=== PATIENT | male | born 1955 | race Caucasian/White ===

== ENCOUNTER 2017-11-22 10:36 | Inpatient (IN) | payer OTHER ==
[2017-11-22] VITALS (13 sets, daily range): BP systolic 84–145; BP diastolic 53–83; PULSE 25–77; RESP 14–20; TEMP 97.7–98; O2SAT 93–98
[2017-11-22] MEDS ORDERED: ONDANSETRON HCL 4 MG/2 ML VIAL IVP ONE (11:30)
[2017-11-22] MEDS ORDERED: SODIUM CHLORIDE 0.9% FLUSH 10 ML FLUSH IVF PRN (11:30)
[2017-11-22] MEDS ORDERED: MORPHINE SULFATE 4 MG/ML INJ IV PUSH ONE (11:30)
[2017-11-22] MEDS ORDERED: RESP: ALBUTEROL 2.5 MG/IPRATROPIUM 0.5 MG NEB (SCH) INH ONE (11:30)
--- NOTE | 2017-11-22 11:33 | PD ---
HPI Chief Complaint: Neuro Symptoms/ Deficits Time Seen by Provider: 11:13 Travel History International Travel<30 days: No Contact w/Intl Traveler<30days: No Traveled to known affect area: No History of Present Illness HPI 62-year-old male who reports a history of tobacco use, hypertension, hepatitis C. He presents for evaluation of headache, right eye blurred vision, difficulty sleeping. He reports that for the past month he has had a gradually worsening bitemporal throbbing headache unrelieved with the use of Tylenol. He reports over the past month he has had some blurred vision in the right eye. [facility] and he was told that his speech seems slurred and he was advised to come here for further evaluation. He also reports that a coworker last week told him that his speech was slurred. He reports that he has had very little sleep over the past 3 days because of a headache. He endorses a chronic cough during review of systems. Denies nausea, vomiting, abdominal pain, fevers, chills, facial droop, focal weakness. He is put on levofloxacin yesterday at the [facility]. He has no other complaints at this time. [facility] Past Medical History Cardiovascular Problems: Yes (HTN) Social History Alcohol Use: Yes Tobacco Use: Yes Allergies-Medications (Allergen,Severity, Reaction): Coded Allergies: No Known Allergies (Unverified , 11/22/17) Reported Meds & Prescriptions Reported Meds & Active Scripts Active Reported Atenolol 50 Mg Tab 50 Mg PO DAILY Tylenol Extra Strength (Acetaminophen) 500 Mg Tablet 2 Tab PO Q6HR PRN Levofloxacin 500 Mg Tablet 500 Mg PO DAILY Prednisone 20 Mg Tab 20 Mg PO DAILY Review of Systems Except as stated in HPI: all other systems reviewed are Neg Physical Exam Narrative GENERAL: Well-developed well-nourished male in no acute distress SKIN: Warm and dry. HEAD: Atraumatic. Normocephalic. EYES: Pupils equal and round reactive to light extraocular muscles are intact. No scleral icterus. No injection or drainage. ENT: No nasal bleeding or discharge. Mucous membranes pink and moist. NECK: Trachea midline. No JVD. CARDIOVASCULAR: Regular rate and rhythm. No murmur appreciated. RESPIRATORY: No accessory muscle use. Diffuse wheezing bilaterally. GASTROINTESTINAL: Abdomen soft, non-tender, nondistended. Hepatic and splenic margins not palpable. MUSCULOSKELETAL: No obvious deformities. No clubbing. No cyanosis. No edema. 5 out of 5 muscle strength in the upper and lower extremities. NEUROLOGICAL: Awake and alert. No obvious cranial nerve deficits. Motor grossly within normal limits. Normal speech. PSYCHIATRIC: Appropriate mood and affect; insight and judgment normal. Data Data Last Documented VS Vital Signs Date Time Temp Pulse Resp B/P (MAP) Pulse Ox O2 Delivery O2 Flow Rate FiO2 11/22/17 13:32 25 18 125/72 (89) 98 11/22/17 12:30 Nasal Cannula 2.00 11/22/17 11:05 98.0 Orders Orders Electrocardiogram (11/22/17 11:27) Prothrombin Time / Inr (Pt) (11/22/17 11:27) Act Partial Throm Time (Ptt) (11/22/17 11:27) Complete Blood Count With Diff (11/22/17 11:27) Comprehensive Metabolic Panel (11/22/17 11:27) Creatine Kinase (Cpk) (11/22/17 11:27) Troponin I (11/22/17 11:27) Ct Brain W/O Iv Contrast(Rout) (11/22/17 11:27) Chest, Single Ap (11/22/17 11:27) Ecg Monitoring (11/22/17 11:27) Iv Access Insert/Monitor (11/22/17 11:27) Oximetry (11/22/17 11:27) Sodium Chloride 0.9% Flush (Ns Flush) (11/22/17 11:30) Westergren Sedimentation Rate (11/22/17 11:27) Albuterol-Ipratropium Neb (Duoneb Neb) (11/22/17 11:30) Ondansetron Inj (Zofran Inj) (11/22/17 11:30) Morphine Inj (Morphine Inj) (11/22/17 11:30) CKMB (11/22/17 10:48) CKMB% (11/22/17 10:48) Aspirin Chew (Aspirin Chew) (11/22/17 13:00) Mri Brain W/O Contrast (11/22/17 ) Consult Cardiology (11/22/17 ) (Hub Use Only)Inp Phy Cons/Ref (11/22/17 ) Admit Order (Ed Use Only) (11/22/17 13:40) Labs Laboratory Tests Test 11/22/17 10:48 White Blood Count 15.2 TH/MM3 Red Blood Count 4.86 MIL/MM3 Hemoglobin 14.1 GM/DL Hematocrit 42.1 % Mean Corpuscular Volume 86.6 FL Mean Corpuscular Hemoglobin 28.9 PG Mean Corpuscular Hemoglobin Concent 33.4 % Red Cell Distribution Width 14.1 % Platelet Count 345 TH/MM3 Mean Platelet Volume 7.4 FL Neutrophils (%) (Auto) 84.2 % Lymphocytes (%) (Auto) 12.0 % Monocytes (%) (Auto) 3.4 % Eosinophils (%) (Auto) 0.0 % Basophils (%) (Auto) 0.4 % Neutrophils # (Auto) 12.8 TH/MM3 Lymphocytes # (Auto) 1.8 TH/MM3 Monocytes # (Auto) 0.5 TH/MM3 Eosinophils # (Auto) 0.0 TH/MM3 Basophils # (Auto) 0.1 TH/MM3 CBC Comment DIFF FINAL Differential Comment Erythrocyte Sedimentation Rate 10 mm/hr Prothrombin Time 10.8 SEC Prothromb Time International Ratio 1.1 RATIO Activated Partial Thromboplast Time 24.5 SEC Blood Urea Nitrogen 12 MG/DL Creatinine 0.85 MG/DL Random Glucose 135 MG/DL Total Protein 8.0 GM/DL Albumin 3.9 GM/DL Calcium Level 9.3 MG/DL Alkaline Phosphatase 86 U/L Aspartate Amino Transf (AST/SGOT) 64 U/L Alanine Aminotransferase (ALT/SGPT) 29 U/L Total Bilirubin 0.3 MG/DL Sodium Level 137 MEQ/L Potassium Level 4.2 MEQ/L Chloride Level 103 MEQ/L Carbon Dioxide Level 27.1 MEQ/L Anion Gap 7 MEQ/L Estimat Glomerular Filtration Rate 91 ML/MIN Total Creatine Kinase 444 U/L Creatine Kinase MB 52.2 NG/ML Creatine Kinase MB % 11.8 % Troponin I 8.63 NG/ML [facility] Medical Decision Making Medical Screen Exam Complete: Yes Emergency Medical Condition: Yes Medical Record Reviewed: Yes Differential Diagnosis Tension headache, migraine, subarachnoid hemorrhage, CVA, temporal arteritis Narrative Course The patient was placed on ECG monitor pulse oximetry. 12 lead EKG was obtained. DuoNeb has been ordered for his wheezing. Morphine, Zofran has been ordered for his cephalgia. Lab work, chest x-ray, CT of the brain has been ordered. EKG reveals sinus rhythm with no acute ischemic changes. CBC reveals a WBC count of 15.2. Troponin is elevated at 8.63 and a CK-MB percent is 11.8. Upon further questioning the patient does report that he had about an hour of left-sided squeezing chest pain at 8 AM this morning which resolved. I spoke with sales service professional Dr. Rosario at would like a stat MRI of the brain. With normal CT brain is unlikely that there was an acute hemorrhagic event. He would like the patient to be kept npo and he plans on taking him for cardiac catheterization later today. The patient has been NPO since 8 AM. Diagnosis Primary Impression: NSTEMI (non-ST elevated myocardial infarction) Additional Impressions: Cephalgia Blurred vision, right eye Admitting Information Admitting Physician Requests: Jonatan Hodge Nov 22, 2017 11:33
[2017-11-22] MEDS ORDERED: ACET-822 PO (11:34)
[2017-11-22] MEDS ORDERED: LEVO500T8 PO (11:34)
[2017-11-22] MEDS ORDERED: PRED20 PO (11:34)
[2017-11-22] MEDS ORDERED: ATEN50TA PO (11:34)
--- NOTE | 2017-11-22 11:49 | PD ---
Physical Exam Date Seen by Provider: Nov 22, 2017 Time Seen by Provider: 11:45 Narrative Seeing this patient with Jonatan Crockett PA-C. This is a 62-year-old gentleman with history of COPD, [facility]. Patient reports that he has had bilateral temporal headache for 1 month. He also reports right eye blurry vision 1 month. Patient states the headache is like a vice squeezing on his head. He denies any focal deficits of his extremities. According to him he states the [facility] thought that he has slurred speech. He does not recall or feel as though he has any new slurred speech. Data Data Last Documented VS Vital Signs Date Time Temp Pulse Resp B/P (MAP) Pulse Ox O2 Delivery O2 Flow Rate FiO2 11/22/17 13:32 25 18 125/72 (89) 98 11/22/17 12:30 Nasal Cannula 2.00 11/22/17 11:05 98.0 Orders Orders Electrocardiogram (11/22/17 11:27) Prothrombin Time / Inr (Pt) (11/22/17 11:27) Act Partial Throm Time (Ptt) (11/22/17 11:27) Complete Blood Count With Diff (11/22/17 11:27) Comprehensive Metabolic Panel (11/22/17 11:27) Creatine Kinase (Cpk) (11/22/17 11:27) Troponin I (11/22/17 11:27) Ct Brain W/O Iv Contrast(Rout) (11/22/17 11:27) Chest, Single Ap (11/22/17 11:27) Ecg Monitoring (11/22/17 11:27) Iv Access Insert/Monitor (11/22/17 11:27) Oximetry (11/22/17 11:27) Sodium Chloride 0.9% Flush (Ns Flush) (11/22/17 11:30) Westergren Sedimentation Rate (11/22/17 11:27) Albuterol-Ipratropium Neb (Duoneb Neb) (11/22/17 11:30) Ondansetron Inj (Zofran Inj) (11/22/17 11:30) Morphine Inj (Morphine Inj) (11/22/17 11:30) CKMB (11/22/17 10:48) CKMB% (11/22/17 10:48) Aspirin Chew (Aspirin Chew) (11/22/17 13:00) Consult Cardiology (11/22/17 ) (Hub Use Only)Inp Phy Cons/Ref (11/22/17 ) Admit Order (Ed Use Only) (11/22/17 13:40) Mri Brain W/O Contrast (11/23/17 ) Labs Laboratory Tests Test 11/22/17 10:48 White Blood Count 15.2 TH/MM3 Red Blood Count 4.86 MIL/MM3 Hemoglobin 14.1 GM/DL Hematocrit 42.1 % Mean Corpuscular Volume 86.6 FL Mean Corpuscular Hemoglobin 28.9 PG Mean Corpuscular Hemoglobin Concent 33.4 % Red Cell Distribution Width 14.1 % Platelet Count 345 TH/MM3 Mean Platelet Volume 7.4 FL Neutrophils (%) (Auto) 84.2 % Lymphocytes (%) (Auto) 12.0 % Monocytes (%) (Auto) 3.4 % Eosinophils (%) (Auto) 0.0 % Basophils (%) (Auto) 0.4 % Neutrophils # (Auto) 12.8 TH/MM3 Lymphocytes # (Auto) 1.8 TH/MM3 Monocytes # (Auto) 0.5 TH/MM3 Eosinophils # (Auto) 0.0 TH/MM3 Basophils # (Auto) 0.1 TH/MM3 CBC Comment DIFF FINAL Differential Comment Erythrocyte Sedimentation Rate 10 mm/hr Prothrombin Time 10.8 SEC Prothromb Time International Ratio 1.1 RATIO Activated Partial Thromboplast Time 24.5 SEC Blood Urea Nitrogen 12 MG/DL Creatinine 0.85 MG/DL Random Glucose 135 MG/DL Total Protein 8.0 GM/DL Albumin 3.9 GM/DL Calcium Level 9.3 MG/DL Alkaline Phosphatase 86 U/L Aspartate Amino Transf (AST/SGOT) 64 U/L Alanine Aminotransferase (ALT/SGPT) 29 U/L Total Bilirubin 0.3 MG/DL Sodium Level 137 MEQ/L Potassium Level 4.2 MEQ/L Chloride Level 103 MEQ/L Carbon Dioxide Level 27.1 MEQ/L Anion Gap 7 MEQ/L Estimat Glomerular Filtration Rate 91 ML/MIN Total Creatine Kinase 444 U/L Creatine Kinase MB 52.2 NG/ML Creatine Kinase MB % 11.8 % Troponin I 8.63 NG/ML [facility] Medical Record Reviewed: Yes Supervised Visit with BRITTANY: Yes Differential Diagnosis CVA versus migraine variant versus temporal arteritis versus metabolic derangement versus intracranial tumor Narrative Course 82-year-old [facility]. Patient has history of COPD. The patient has a head CT that shows no evidence of acute abnormalities. The patient had symptoms for a month now. The patient has no focal extremity deficit. He does have blurry vision in the right eye however does have vision. He also has bitemporal headache. EKG showed no evidence of acute ST elevation or depression. The patient's troponin was elevated at 8. The patient did admit that he previously had chest pain prior to arrival. He is pain-free now. The case was discussed her Marlene who will take him emergently to the [facility]. This point I do not feel he has a hemorrhagic stroke and am doubtful that he is even had a stroke. I think the appropriate decision is to take him to the [facility] and grief fully with Dr. cordero's decision. Diagnosis Primary Impression: NSTEMI (non-ST elevated myocardial infarction) Additional Impressions: HTN (hypertension) CAD (coronary artery disease) Cephalgia Blurred vision, right eye Admitting Information Admitting Physician Requests: Admit Scripts Escitalopram (Escitalopram) 10 Mg Tab 10 MG PO DAILY for heart, #30 TAB Prov: David Larson MD 11/24/17 Aspirin (Tgt Aspirin) 81 Mg Chw 81 MG PO DAILY for Blood Clot Prevention for 30 Days, #30 EA Prov: David Larson MD 11/24/17 Atorvastatin (Lipitor) 10 Mg Tab 40 MG PO HS for heart for 30 Days, #30 TAB Prov: David Larson MD 11/24/17 Carvedilol (Coreg) 3.125 Mg Tab 3.125 MG PO BID for heart for 30 Days, #60 TAB Prov: David Larson MD 11/24/17 Ticagrelor (Brilinta) 90 Mg Tab 90 MG PO BID for Blood Clot Prevention for 30 Days, #60 TAB Prov: David Larson MD 11/24/17 Adilson Willis MD Nov 22, 2017 11:49
[2017-11-22 12:11] LABS: AUTOMATED NEUTROPHIL # 12.8 TH/MM3 (1.8-7.7); BASOPHIL # 0.1 TH/MM3 (0-0.2); BASOPHIL % 0.4 % (0.0-2.0); HEMATOCRIT 42.1 % (39.0-51.0); HEMOGLOBIN 14.1 GM/DL (13.0-17.0); LYMPHOCYTE # 1.8 TH/MM3 (1.0-4.8); MEAN CELL VOLUME 86.6 FL (80.0-100.0); MEAN CORPUSCULAR HEMOGLOBIN 28.9 PG (27.0-34.0); MEAN CORPUSCULAR HGB CONC 33.4 % (32.0-36.0); MEAN PLATELET VOLUME 7.4 FL (7.0-11.0); MONO % 3.4 % (0.0-8.0); MONOCYTE # 0.5 TH/MM3 (0-0.9); NEUT % 84.2 % (16.0-70.0); PLATELET COUNT 345 TH/MM3 (150-450); RED BLOOD COUNT 4.86 MIL/MM3 (4.50-5.90); RED CELL DISTRIBUTION WIDTH 14.1 % (11.6-17.2); WHITE BLOOD COUNT 15.2 TH/MM3 (4.0-11.0)
--- NOTE | 2017-11-22 12:13 | RADRPT ---
EXAM DATE/TIME: 11/22/2017 11:46 [facility] COMPARISON: No previous studies available for comparison. INDICATIONS : Cough and shortness of breath. MEDICAL HISTORY : Hypertension. SURGICAL HISTORY : None. ENCOUNTER: Initial ACUITY: 2 weeks PAIN SCORE: 0/10 LOCATION: Bilateral chest FINDINGS: A single view of the chest demonstrates the lungs to be symmetrically aerated without evidence of mas s, infiltrate or effusion. The cardiomediastinal contours are unremarkable. Osseous structures are intact. CONCLUSION: No acute disease. Roman Zimmer MD on November 22, 2017 at 12:11 Board Certified Radiologist. This report was verified electronically.
[2017-11-22 12:19] LABS: INTERNATIONAL NORMALIZED RATIO 1.1 RATIO; PROTHROMBIN TIME - PATIENT 10.8 SEC (9.8-11.6)
[2017-11-22 12:25] LABS: ALBUMIN 3.9 GM/DL (3.4-5.0); ALT (GPT) 29 U/L (12-78); AST (GOT) 64 U/L (15-37); BICARBONATE 27.1 MEQ/L (21.0-32.0); BLOOD UREA NITROGEN 12 MG/DL (7-18); CALCIUM 9.3 MG/DL (8.5-10.1); CHLORIDE 103 MEQ/L (98-107); CREATININE 0.85 MG/DL (0.60-1.30); GLOMERULAR FILTRATION RATE 91 ML/MIN (>89); GLUCOSE,RANDOM 135 MG/DL (74-106); SODIUM (NA) 137 MEQ/L (136-145)
[2017-11-22 12:29] LABS: ALKALINE PHOSPHATASE 86 U/L (45-117); TOTAL BILIRUBIN ADULT 0.3 MG/DL (0.2-1.0)
[2017-11-22 12:37] LABS: TROPONIN I 8.63 NG/ML (0.02-0.05)
--- NOTE | 2017-11-22 12:53 | RADRPT ---
EXAM DATE/TIME: 11/22/2017 12:14 [facility] COMPARISON: No previous studies available for comparison. INDICATIONS : Intermittent headaches x 2 weeks. Right side blurred vision, slurred speech, and generalized weaknes s. RADIATION DOSE: 37.66 CTDIvol (mGy) MEDICAL HISTORY : Hypertension. SURGICAL HISTORY : None. ENCOUNTER: Initial ACUITY: 2 weeks PAIN SCALE: 7/10 LOCATION: cranial TECHNIQUE: Multiple contiguous axial images were obtained of the head. Using automated exposure control and adj ustment of the mA and/or kV according to patient size, radiation dose was kept as low as reasonably a chievable to obtain optimal diagnostic quality images. DICOM format image data is available electro nically for review and comparison. FINDINGS: CEREBRUM: The ventricles are normal for age. No evidence of midline shift, mass lesion, hemorrhage or acute in farction. No extra-axial fluid collections are seen. POSTERIOR FOSSA: The cerebellum and brainstem are intact. The 4th ventricle is midline. The cerebellopontine angle i s unremarkable. EXTRACRANIAL: The visualized portion of the orbits is intact. SKULL: The calvaria is intact. No evidence of skull fracture. CONCLUSION: 1. Unremarkable exam. 2. No evidence of acute infarct, hemorrhage, mass or edema. Roman Zimmer MD on November 22, 2017 at 12:49 Board Certified Radiologist. This report was verified electronically.
[2017-11-22] MEDS ORDERED: ASPIRIN 81 MG CHEW TAB PO ONE (13:00)
[2017-11-22] MEDS ORDERED: NALOXONE HCL 0.4 MG/ML AMP IV PUSH PRN (13:45)
[2017-11-22] MEDS ORDERED: SODIUM CHLORIDE 0.9% FLUSH 10 ML FLUSH IV FLUSH PRN ×2 (13:45)
[2017-11-22] MEDS ORDERED: NITROGLYCERIN 0.4 MG SL 25 TABS/BTL SL PRN (13:45)
[2017-11-22] MEDS ORDERED: MORPHINE SULFATE 2 MG/ML INJ IV PUSH PRN (13:45)
[2017-11-22] MEDS ORDERED: MAGNESIUM HYDROXIDE SUSP 30 ML CUP PO PRN (13:45)
[2017-11-22] MEDS: SODIUM CHLOR 0.9% 1000 ML INJ 1,000 ML IV SCH (14:30)
[2017-11-22] MEDS ORDERED: MIDAZOLAM HCL 5 MG/5 ML VIAL ONE (14:34)
[2017-11-22] MEDS ORDERED: NITROGLYCERIN INJ 5 ML ONE (14:34)
[2017-11-22] MEDS ORDERED: HEPARIN-NS/PF FLUSH BAG 2,000 ML IV FLUSH ONE (14:34)
[2017-11-22] MEDS ORDERED: HEPARIN SODIUM - IV 10,000 UNITS/10 ML VIAL ONE (14:35)
[2017-11-22] MEDS ORDERED: MIDAZOLAM HCL 2 MG/2 ML VIAL ONE (14:50)
--- NOTE | 2017-11-22 15:02 | MB ---
cc: Saritha Rosario MD DATE OF CONSULT: 11/22/2017 HISTORY OF PRESENT ILLNESS: Mr. Jean is a 62-year-old white male with a history of hypertension, hepatitis C and smoking. He has had 1 month history of bitemporal headache and blurred vision in the right eye. He was seen at the [facility] yesterday and was told that he had slurred speech. He developed severe substernal chest discomfort this morning, which lasted for over an hour. Complains of chronic cough, mild shortness of breath. He was started on levofloxacin yesterday at the [facility]. He was found to have significantly elevated troponin consistent with myocardial infarction. PAST MEDICAL HISTORY: Positive for hypertension, hepatitis C. No history of diabetes mellitus, dyslipidemia, coronary artery disease, CVA, history of COPD. MEDICATIONS: Atenolol, Tylenol, levofloxacin, prednisone. ALLERGIES: NONE. SOCIAL HISTORY: The patient is a smoker. He also drinks alcohol. FAMILY HISTORY: Negative for heart disease. REVIEW OF SYSTEMS: Otherwise negative. PHYSICAL EXAMINATION: VITAL SIGNS: Blood pressure 125/72, pulse 62 and regular. HEENT: Negative. NECK: 2+ carotid upstrokes. No bruits. LUNGS: With few wheezes and rhonchi. HEART: Regular with no murmur, gallop or rub. ABDOMEN: Soft, no bruit. EXTREMITIES: Without edema. 1-2+ distal pulses. NEUROLOGIC: Grossly nonfocal. DIAGNOSTIC STUDIES: EKG was reviewed and showed sinus arrhythmia, small inferior T-waves, no acute changes. LABORATORY DATA: Hemoglobin 14.1, potassium 4.2, creatinine 0.85, CK 444, CKMB 11.8, troponin 8.63, AST 64, ALT 29. DIAGNOSES: 1. Recent non-ST elevation myocardial infarction. 2. Hypertension. 3. Smoking. 4. Hepatitis C. 5. Headaches. DISPOSITION: Mr. Jean has ruled in for myocardial infarction. His head CT showed no evidence of acute infarct or hemorrhage. He will undergo cardiac catheterization and coronary intervention if necessary today. He understands the risks and benefits and wished to proceed. Saritha Rosario MD OQ/KD , 02:35 PM , 02:58 PM
[2017-11-22] MEDS ORDERED: TICAGRELOR 90 MG TAB PO ONE (15:54)
--- NOTE | 2017-11-22 16:17 | CATHPROC ---
[employer] HIS Report Study Information Study Number Admission Scheduled Start Study Start [id number] Nov 22 2017 1:42PM 11/22/2017 Nov 22 2017 2:22PM [place] [facility] Cardiac Catheterization Admit Source Facility Department Emergency department [facility] Physician and Clinical Staff Initial Saritha High Breakfast Manager Yomaira Moreno,RN Recorder Radha Hassan ,RT(R) Scrub Marleen Pennington,RT(R) Procedures Performed Procedure Location (Site) Vessel Name Angiogram LV LV Ventricle Coronary Angiograms LCA Left Coronary Coronary Angiograms RCA Right Coronary Drug Eluting Inflatio RCA Mid Right Coronary L Heart Cath PTCA RCA Mid Right Coronary Wire insertion Fem Art (right) Femoral Art Equipment Time Wood Box Maker Description Size Mfg Part Number Used/Scraped WIRE, BALANCE MIDDLEWEIGHT [id number] 15:09 [employer] 190CM Used 190CM *[id number] TRANSDUCER, TRUWAVE [id number] 14:43 MEDRANO ADAME * Used W/STOCKCOCK *[id number] *[id number] [id number] *[id number] [id number] *[id number] 15:50 DAIG/ST. VITA MEDICAL ANGIOSEAL, FR6 VIP FR 6 Used *[id number] 14:43 [employer] IND[employer]RIES PACK, CCL CUSTOM * Used *[id number] 14:43 [employer] PACER PEN, SKIN DUAL W/ RULER * Used *[id number] 14:58 MEDTRONIC AR MOD DXTERITY CATHETER FR 5 [id number] Used [id number] 15:11 [employer] BALLOON, 2.0 X 12MM EUPHORA 12MM Used *[id number] 15:31 MEDTRONIC BALLOON, 2.5 X 15MM EUPHORA 15MM Used *[id number] 15:26 MEDTRONIC STENT, 2.5 26 INTEGRITY 2.5 26 Used *[id number] 15:40 MEDTRONIC STENT, 2.75 26 INTEGRITY 2.75 26 Used *[id number] [id number] 15:14 [employer] MEDICAL 30 JUANCHO INDEFLATOR Used *[id number] 15:07 [employer] MEDICAL SHEATH, FR6.5 PRELUDE 11CM FR 6.5 038ACT Used *[id number] 14:43 [employer]. WIRE, 3MMJ .035 180CM 180CM Used *[id number] PROBE COVER, STERILE [id number] 14:43 [employer] * Used ULTRASOUND W/ GEL *[id number] [id number] 14:43 NAMIC MANIFOLD, 4 PORT * Used *[id number] [id number] 14:43 NAMIC TUBING, HIGH PRESSURE 48" 48" Used *[id number] 14:43 NYCOMED OMNIPAQUE, 350 MG, 150ML 150ML [id number] Used [id number] 14:43 [facility] BLANKET,WARM AIR CCL * Used *[id number] [id number] 14:43 TERUMO MEDICAL SHEATH, FR5 TERUMO (10CM) FR 5 Used *[id number] WIRE, RUNTHROUGH NS FLOPPY [id number] 15:29 TERUMO MEDICAL 180CM Used .014 180CM *[id number] Equipment Model, Serial, Lot Number and Expiration Data Description Model Number Serial Number Lot Number Expiration Date ANGIOSEAL, FR6 VIP [id number] 07-26-2018 AR MOD DXTERITY CATHETER [id number] 01-22-2020 STENT, 2.5 26 INTEGRITY [id number] 04-06-2019 STENT, 2.75 26 INTEGRITY [id number] 05-09-2019 History: Current Medications Medication Dosage/Unit Route Frequency Last Date/Time Taken ASA Beta Kyara History: Allergies Allergy Reaction No Known Allergies History: Risk Factors Family History of Hypertension Dyslipidemia Previous [place] Previous Heart Failure Premature CAD Yes No No No No Prior Valve Prior PCI Prior CABG Surgery No No No Cerebrovascular Peripheral Artery Chronic Lung On Dialysis Diabetes Disease Disease Disease No Yes No Yes No History: Stress Tests Stress or Imaging Studies Performed No History: Other Current Smoker Method Yes Cigarettes Labs Hgb (g/dl) Hct (%) WBC (l/cumm) Platelets (thousands) 11.60-17.00 35.00-51.00 4.00-11.00 150.00-450.00 14.1 42.1 15.2 345 BUN (mg/dl) Creatinine (mg/dl) BUN:Creatinine (1:x) 7.00-18.00 0.50-1.30 10.00-20.00 12 0.9 13.3 Na (meq/l) K (meq/l) 136.00-145.00 3.50-5.10 137 4.2 INR (PTT:PT) 0.90-1.10 1.1 Troponin I (ng/ml) CPK (u/l) CPK-MB (ng/ML) 0.02-0.05 26.00-308.00 0.50-3.60 8.63 444 52.2 Medication Medication Total Dose (Bolus/Oral) Medication Total Dosage/Unit 1% XYLOCAINE 20 mL BRILINTA 180 mg FENTANYL 150 mcg HEPARIN 5500 units NTG (IC) 200 mcg VERSED 6 mg Medications (Bolus/Oral) Medication Time Given Dosage/Unit Administered By Reason VERSED 11/22/2017 2:40:00 PM 2 mg Reddick, Yomaira 2 mg VERSED given in lab by Yomaira Moreno RN in Right Antecubital via Peripheral IV. Ordered by Saritha Norwood. FENTANYL 11/22/2017 2:41:00 PM 50 mcg Reddick, Yomaira 50 mcg FENTANYL given in lab by Yomaira Moreno RN in Right Antecubital via Peripheral IV. Ordered b y Saritha Rosario. VERSED 11/22/2017 2:43:00 PM 1 mg Reddick, Yomaira 1 mg VERSED given in lab by Yomaira Moreno RN via Peripheral IV. Ordered by Saritha Rosario. FENTANYL 11/22/2017 2:44:00 PM 25 mcg Reddick, Yomaira 25 mcg FENTANYL given in lab by Yomaira Moreno RN in Right Antecubital via Peripheral IV. Ordered b y Saritha Rosario. VERSED 11/22/2017 2:48:00 PM 1 mg Reddick, Yomaira 1 mg VERSED given in lab by Yomaira Moreno RN in Right Antecubital via Peripheral IV. Ordered by Saritha Norwood. FENTANYL 11/22/2017 2:49:00 PM 25 mcg Josh, Yomaira 25 mcg FENTANYL given in lab by Yomaira Moreno RN in Right Antecubital via Peripheral IV. Ordered b y Saritha Rosario. 1% XYLOCAINE 11/22/2017 2:49:54 PM 20 mL Saritha Rosario 20 mL 1% XYLOCAINE given in lab by Saritha Rosario in Right Groin via Subcutaneous. Ordered by Saritha Bach. VERSED 11/22/2017 2:51:00 PM 1 mg Reddick, Yomaira 1 mg VERSED given in lab by Yomaira Moreno RN in Right Antecubital via Peripheral IV. Ordered by Saritha Norwood. FENTANYL 11/22/2017 2:52:00 PM 25 mcg Yomaira Moreno 25 mcg FENTANYL given in lab by Yomaira Moreno RN in Right Antecubital via Peripheral IV. Ordered b y Saritha Rosario. HEPARIN 11/22/2017 3:05:36 PM 4500 units Yomaira Moreno 4500 units HEPARIN given in lab by Yomaira Moreno RN in Right Antecubital via Peripheral IV. Ordere d by Saritha Rosario. FENTANYL 11/22/2017 3:12:00 PM 25 mcg Yomaira Moreno 25 mcg FENTANYL given in lab by Yomaira Moreno RN in Right Antecubital via Peripheral IV. Ordered b y Saritha Rosario. VERSED 11/22/2017 3:13:00 PM 1 mg Yomaira Moreno 1 mg VERSED given in lab by Yomaira Moreno RN in Right Antecubital via Peripheral IV. Ordered by Saritha Norwood. NTG (IC) 11/22/2017 3:17:48 PM 100 mcg Yomaira Moreno 100 mcg NTG (IC) given in lab by Yomaira Moreno RN via Intra-coronary. Ordered by Saritha Rosario. HEPARIN 11/22/2017 3:32:49 PM 1000 units Yomaira Moreno 1000 units HEPARIN given in lab by Yomaira Moreno RN via Peripheral IV. Ordered by Saritha Rosario. NTG (IC) 11/22/2017 3:43:40 PM 100 mcg Saritha Rosario 100 mcg NTG (IC) given in lab by Saritha Rosario via Intra-coronary. Ordered by Saritha Rosario. BRILINTA 11/22/2017 3:54:00 PM 180 mg Yomaira Moreno 180 mg BRILINTA given in lab by Yomaira Moreno RN via Oral. Ordered by Saritha Rosario. Medication (Drip) Medication Time Given Dosage/Unit Concentration/Unit Diluent (ml) Solution IV Bolus 11/22/2017 2:53:00 PM 0 mL (Bolus) 1000 NaCl .9 0 mL (Bolus) IV Bolus given in lab by Yomaira Moreno RN in Right Antecubital via Peripheral IV. Usi ng NaCl .9. Ordered by Saritha Rosario. IV Solutions 11/22/2017 2:22:39 PM 50 mL (IV) NaCl .9 Patient arrived on IV Solutions given by Yomaira Moreno RN in Right Antecubital via Peripheral IV. Pump/Drip Flow using NaCl .9. Ordered by Saritha Rosario. Initial Case Assessment Cardiovascular HR Rhythm NIBP Chest Pain 75 sr 110/65 0 Edema Present Skin color Skin None Normal Warm Dry Circulatory - Right Pulses Dorsalis Pedis Femoral 1 2 Scale (0,1,2,3,4,d) Circulatory - Left Pulses Dorsalis Pedis Femoral 1 2 Scale (0,1,2,3,4,d) Circulatory - Lower Extremities Color Lower Right Color Lower Left Normal Normal Neurological State Oriented to time-place- Alert Moves all extremities person Respiration - General Respiration Rate SpO2 (%) (B/min) 15 97 Final Case Assessment Cardiovascular HR Rhythm NIBP Chest Pain 62 sr 120/69 0 Edema Present Skin color Skin None Normal Warm Dry Circulatory - Right Pulses Dorsalis Pedis Femoral 1 2 Scale (0,1,2,3,4,d) Circulatory - Left Pulses Dorsalis Pedis Femoral 1 2 Scale (0,1,2,3,4,d) Circulatory - Lower Extremities Color Lower Right Color Lower Left Normal Normal Neurological State Oriented to time-place- Alert Moves all extremities person Respiration - General Respiration Rate SpO2 (%) (B/min) 30 100 Chronological Log Time Study Chronological Log 14:22:22 Patient arrived via Bed. 14:22:23 Patient Name, D.O.B, / Armband Verified By R.N. 14:22:24 Consent signed by the physician and the patient and verified by the [facility] staff. 14:22:25 Verbal Stimulation=2 Physical Stimulation=2 Airway=2 Respiration=2 TOTAL=8. (0=absent, 1=li mited, 2=present) 14:22:27 Patient has been NPO for Less than 6Hrs. 14:22:28 Skin Breakdown- none per patient 14:22:29 Patient Warmer Placed on the Table. 14:22:30 Magaly Prominences Protected 14:22:38 A # 20 IV was noted in the Antecubital (right). Grade = 0 Patient arrived on IV Solutions given by Yomaira Moreno RN in Right Antecubital via Periphera l IV. Pump/Drip Flow 14::39 using NaCl .9. Ordered by Saritha Rosario. 14:22:39 History and physical on the chart or being dictated. Assessment: Initial Case, HR=75 BPM, Rhythm=sr, AGJV=737/65 mmhg, Chest Pain=0, Edema=None, Col or=Normal, Skin = Warm, Dry Right Pulses: Chase Ped=1, Femoral=2 Left Pulses: Chase Ped=1, Femoral=2 14:22:40 Lower Right Extremities: Color=Normal Lower Left Extremities: Color=Normal Neurological: State=Alert, Ox3, [place] Respiration: Resp=15 B/min, SpO2=97 % 14:36:14 MD arrived. Vitals capture started with the following parameters, Patient=Adult, Interval=5 min, Initial Pr nfyzjy=232 mmHg, 14:37:15 Deflation Rate=5 mmHg, Cuff placed on Left Arm 14:37:47 HR=60 bpm, BUVT=041/65 mmhg, SpO2=98.0 %, Resp=20 B/min, Pain=0, Jonathan=10, Galeas=2 14:40:00 2 mg VERSED given in lab by Yomaira Moreno RN in Right Antecubital via Peripheral IV. Ord ered by Saritha Rosario. 50 mcg FENTANYL given in lab by Yomaira Moreno, VANDANA in Right Antecubital via Peripheral IV. Ord ered by Marlene, 14:41:00 Saritha. 14:41:00 Pressure channel 1 zeroed. 14:42:39 Bilateral groins prepped with 2% chlorhexidine, and draped after a 3 minute waiting time. 14:42:44 HR=71 bpm, NIBP=97/70 mmhg, SpO2=96.0 %, Resp=12 B/min, Pain=0, Jonathan=10, Galeas=2 14:43:00 1 mg VERSED given in lab by Yomaira Moreno RN via Peripheral IV. Ordered by Norris Rosario. 25 mcg FENTANYL given in lab by Yomaira Moreno, VANDANA in Right Antecubital via Peripheral IV. Ord ered by Marlene, 14:44:00 Saritha. 14:47:45 HR=71 bpm, NIBP=96/61 mmhg, SpO2=81.0 %, Resp=7 B/min, Pain=0, Jonathan=10, Galeas=2 14:48:00 1 mg VERSED given in lab by Yomaira Moreno RN in Right Antecubital via Peripheral IV. Ord ered by Saritha Rosario. 25 mcg FENTANYL given in lab by Yomaira Moreno RN in Right Antecubital via Peripheral IV. Ord ered by Marlene, 14:49:00 Saritha. Time Out. Correct patient, correct procedure, correct physician, power injector loaded with con trast with surgical team 14:49:36 present. Time Out Concurred by MD and individual staff in procedure. 14:49:53 Case Start 14:49:54 20 mL 1% XYLOCAINE given in lab by Saritha Rosario in Right Groin via Subcutaneous. Ordered by Saritha Rosario. 14:50:26 Reference ECG taken 14:51:00 1 mg VERSED given in lab by Yomaira Moreno RN in Right Antecubital via Peripheral IV. Ord ered by Saritha Rosario. 25 mcg FENTANYL given in lab by Yomaira Moreno RN in Right Antecubital via Peripheral IV. Ord ered by Marlene, 14:52:00 Saritha. 14:52:44 HR=58 bpm, NIBP=95/57 mmhg, SpO2=99.0 %, Resp=25 B/min, Pain=0, Jonathan=10, Galeas=2 0 mL (Bolus) IV Bolus given in lab by Yomaira Moreno RN in Right Antecubital via Peripheral I V. Using NaCl .9. Ordered 14:53:00 by Saritha Rosario. 14:53:14 Access site was Right Femoral Artery. 14:53:22 A SHEATH, FR5 TERUMO (10CM) FR 5 was advanced into the Fem Art (right) using the Percutaneo us technique. A PIGTAIL ANG. INFINITI CATHETER FR 5 was advanced over a wire. OMNIPAQUE, 350 MG, 150ML 150ML was used 14:53:30 for injections. Recorded Pressure: LV, HR=57, Condition=Condition 1 14:54:46 (Left Ventricle) LV 76/5/9 14:55:22 The LV was injected at 10 cc/sec for a total of 30. OMNIPAQUE, 350 MG, 150ML 150ML used. Recorded Pressure: LV, Ao, HR=67, Condition=Condition 1 14:56:34 (Left Ventricle) LV 77/6/10, (Aorta) Ao 77/43/57 After removing the current catheter a JL 4.0 INFINITI CATHETER FR 5 was advanced over a WIRE, 3 MMJ .035 180CM 14:56:46 180CM. 14:57:45 HR=66 bpm, NIBP=89/49 mmhg, KsE3=549.0 %, Resp=40 B/min, Pain=0, Jonathan=10, Galeas=2 14:58:30 The LCA was injected and visualized at various angles. OMNIPAQUE, 350 MG, 150ML 150ML used . 15:01:21 Catheter was removed A AR MOD DXTERITY CATHETER FR 5 was advanced over a wire. OMNIPAQUE, 350 MG, 150ML 150ML was us ed for 15:01:25 injections. 15:02:31 The RCA was injected and visualized at various angles. OMNIPAQUE, 350 MG, 150ML 150ML used . 15:02:44 HR=67 bpm, NIBP=90/53 mmhg, SpO2=99.0 %, Resp=53 B/min, Pain=0, Jonathan=10, Galeas=2 15:02:56 Catheter was removed 4500 units HEPARIN given in lab by Yomaira Moreno, VANDANA in Right Antecubital via Peripheral IV. Ordered by Marlene, 15:05:36 Saritha. A SHEATH, FR6.5 PRELUDE 11CM FR 6.5 was exchanged in the Fem Art (right). This was necessary in order to 15:06:27 accomodate a larger catheter. 15:07:42 A AR 1 GUIDE CATHETER FR 6 was advanced over a wire. OMNIPAQUE, 350 MG, 150ML 150ML was use d for injections. 15:07:45 HR=70 bpm, NIBP=90/54 mmhg, FbJ3=691.0 %, Resp=31 B/min, Pain=0, Jonathan=10, Galeas=2 15:08:42 A WIRE, BALANCE MIDDLEWEIGHT 190CM 190CM was inserted via Fem Art (right). 15:10:16 Interventional wire has crossed the lesion 15:10:24 Activated Clotting Time Drawn A BALLOON, 2.0 X 12MM EUPHORA 12MM was inserted over WIRE, BALANCE MIDDLEWEIGHT 190CM 190CM via the 15:11:50 Fem Art (right). 25 mcg FENTANYL given in lab by Yomaira Moreno RN in Right Antecubital via Peripheral IV. Ord ered by Marlene, 15:12:00 Saritha. 15:12:44 HR=68 bpm, NIBP=97/59 mmhg, PzP8=795.0 %, Resp=25 B/min, Pain=0, Jonathan=10, Galeas=2 15:13:00 1 mg VERSED given in lab by Yomaira Moreno RN in Right Antecubital via Peripheral IV. Ord ered by Saritha Rosario. A BALLOON, 2.0 X 12MM EUPHORA 12MM over a WIRE, BALANCE MIDDLEWEIGHT 190CM 190CM in the RCA Mid was 15:13:39 inflated using a 30 JUANCHO INDEFLATOR at 2 juancho for 15 sec. 15:14:59 ACT (Normal Range 90-180) = 241 A BALLOON, 2.0 X 12MM EUPHORA 12MM over a WIRE, BALANCE MIDDLEWEIGHT 190CM 190CM in the RCA Mid was 15:15:48 inflated using a 30 JUANCHO INDEFLATOR at 2 juancho for 9 sec. A BALLOON, 2.0 X 12MM EUPHORA 12MM over a WIRE, BALANCE MIDDLEWEIGHT 190CM 190CM in the RCA Mid was 15:16:00 inflated using a 30 JUANCHO INDEFLATOR at 2 juancho for 5 sec. A BALLOON, 2.0 X 12MM EUPHORA 12MM over a WIRE, BALANCE MIDDLEWEIGHT 190CM 190CM in the RCA Mid was 15:16:58 inflated using a 30 JUANCHO INDEFLATOR at 8 juancho for 7 sec. A BALLOON, 2.0 X 12MM EUPHORA 12MM over a WIRE, BALANCE MIDDLEWEIGHT 190CM 190CM in the RCA Mid was 15:17:10 inflated using a 30 JUANCHO INDEFLATOR at 8 juancho for 6 sec. A BALLOON, 2.0 X 12MM EUPHORA 12MM over a WIRE, BALANCE MIDDLEWEIGHT 190CM 190CM in the RCA Mid was 15:17:23 inflated using a 30 JUANCHO INDEFLATOR at 16 juancho for 12 sec. 15:17:45 HR=71 bpm, ZAST=362/66 mmhg, SpO2=98.0 %, Resp=15 B/min, Pain=0, Jonathan=10, Galeas=2 15:17:48 100 mcg NTG (IC) given in lab by Yomaira Moreno, VANDANA via Intra-coronary. Ordered by Saritha Rosario. A BALLOON, 2.0 X 12MM EUPHORA 12MM over a WIRE, BALANCE MIDDLEWEIGHT 190CM 190CM in the RCA Mid was 15:18:45 inflated using a 30 JUANCHO INDEFLATOR at 16 juancho for 15 sec. A BALLOON, 2.0 X 12MM EUPHORA 12MM over a WIRE, BALANCE MIDDLEWEIGHT 190CM 190CM in the RCA Mid was 15:19:06 inflated using a 30 JUANCHO INDEFLATOR at 16 juancho for 10 sec. A BALLOON, 2.0 X 12MM EUPHORA 12MM over a WIRE, BALANCE MIDDLEWEIGHT 190CM 190CM in the RCA Mid was 15:19:22 inflated using a 30 JUANCHO INDEFLATOR at 16 juancho for 11 sec. A BALLOON, 2.0 X 12MM EUPHORA 12MM over a WIRE, BALANCE MIDDLEWEIGHT 190CM 190CM in the RCA Mid was 15:19:44 inflated using a 30 JUANCHO INDEFLATOR at 16 juancho for 10 sec. A BALLOON, 2.0 X 12MM EUPHORA 12MM over a WIRE, BALANCE MIDDLEWEIGHT 190CM 190CM in the RCA Mid was 15:20:02 inflated using a 30 JUANCHO INDEFLATOR at 16 juancho for 10 sec. A BALLOON, 2.0 X 12MM EUPHORA 12MM over a WIRE, BALANCE MIDDLEWEIGHT 190CM 190CM in the RCA Mid was 15:21:33 inflated using a 30 JUANCHO INDEFLATOR at 16 juancho for 20 sec. 15:22:48 HR=69 bpm, NIBP=97/57 mmhg, FkB3=077.0 %, Resp=18 B/min, Pain=0, Jonathan=10, Galeas=2 15:26:00 Balloon Removed. 15:27:47 HR=62 bpm, NIBP=92/54 mmhg, UoV6=313.0 %, Resp=13 B/min, Pain=0, Jonathan=10, Galeas=2 15:29:18 The previous wire was exchanged for a WIRE, RUNTHROUGH NS FLOPPY .014 180CM 180CM. A BALLOON, 2.5 X 15MM EUPHORA 15MM was inserted over WIRE, RUNTHROUGH NS FLOPPY .014 180CM 180C M via 15:31:40 the RCA. A BALLOON, 2.5 X 15MM EUPHORA 15MM over a WIRE, RUNTHROUGH NS FLOPPY .014 180CM 180CM in the RC A Mid 15:32:43 was inflated using a 30 JUANCHO INDEFLATOR at 8 juancho for 20 sec. 15:32:48 HR=64 bpm, WTRY=930/60 mmhg, TdM3=130.0 %, Resp=19 B/min, Pain=0, Jonathan=10, Galeas=2 15:32:49 1000 units HEPARIN given in lab by Yomaira Moreno, VANDANA via Peripheral IV. Ordered by Saritha Bach. A BALLOON, 2.5 X 15MM EUPHORA 15MM over a WIRE, RUNTHROUGH NS FLOPPY .014 180CM 180CM in the RC A Mid 15:33:00 was inflated using a 30 JUANCHO INDEFLATOR at 8 juancho for 14 sec. A BALLOON, 2.5 X 15MM EUPHORA 15MM over a WIRE, RUNTHROUGH NS FLOPPY .014 180CM 180CM in the RC A Mid 15:33:21 was inflated using a 30 JUANCHO INDEFLATOR at 8 juancho for 8 sec. 15:33:33 Balloon Removed. A STENT, 2.5 26 INTEGRITY 2.5 26 was advanced through a AR 1 GUIDE CATHETER FR 6 over a WIRE, R UNTHROUGH 15:35:15 NS FLOPPY .014 180CM 180CM. A STENT, 2.5 26 INTEGRITY 2.5 26 was deployed using a 30 JUANCHO INDEFLATOR at 9 atmospheres for 18 seconds in 15:36:04 the RCA Mid. 15:36:39 Re-inflated the stent balloon in the RCA Mid to 16 JUANCHO for 14 seconds. 15:37:48 HR=68 bpm, HNNK=374/70 mmhg, HvK7=836.0 %, Resp=32 B/min, Pain=0, Jonathan=10, Galeas=2 15:39:06 Re-inflated the stent balloon in the RCA Mid to 20 JUANCHO for 30 seconds. 15:40:06 Delivery device removed A STENT, 2.75 26 INTEGRITY 2.75 26 was advanced through a AR 1 GUIDE CATHETER FR 6 over a WIRE, 15:41:01 RUNTHROUGH NS FLOPPY .014 180CM 180CM. A STENT, 2.75 26 INTEGRITY 2.75 26 was deployed using a 30 JUANCHO INDEFLATOR at 12 atmospheres for 28 seconds 15:41:56 in the RCA Mid. 15:42:50 Re-inflated the stent balloon in the RCA Mid to 12 JUANCHO for 12 seconds. 15:42:51 HR=69 bpm, JBJW=482/77 mmhg, ZxZ2=188.0 %, Resp=64 B/min, Pain=0, Jonathan=10, Galeas=2 15:43:16 Delivery device removed 15:43:40 100 mcg NTG (IC) given in lab by Saritha Rosario via Intra-coronary. Ordered by Joaquin Rosario. 15:47:40 Wire removed 15:47:44 Catheter was removed 15:47:54 HR=65 bpm, MKIW=678/71 mmhg, SpO2=99.0 %, Resp=17 B/min, Pain=0, Jonathan=10, Galeas=2 15:51:24 ANGIOSEAL, FR6 VIP FR 6 placement in the Fem Art (right) 15:52:47 Case End 15:52:57 HR=65 bpm, LYVO=406/69 mmhg, SpO2=92.0 %, Resp=22 B/min, Pain=0, Jonathan=10, Galeas=2 Assessment: Final Case, HR=62 BPM, Rhythm=sr, JBLM=473/69 mmhg, Chest Pain=0, Edema=None, Color =Normal, Skin = Warm, Dry Right Pulses: Chase Ped=1, Femoral=2 Left Pulses: Chase Ped=1, Femoral=2 15:53:05 Lower Right Extremities: Color=Normal Lower Left Extremities: Color=Normal Neurological: State=Alert, Ox3, [place] Respiration: Resp=30 B/min, ObX9=880 % 15:53:07 Catheter(s) removed without difficulty 15:54:00 180 mg BRILINTA given in lab by Yomaira Moreno RN via Oral. Ordered by Saritha Rosario. 15:54:29 Cine recording checked. 15:54:30 Bedside Report will be given. 15:54:38 Implantable Device card placed in patient's chart. 15:54:43 A Left Heart Cath was performed. 15:57:56 HR=71 bpm, HISG=390/70 mmhg, PbA1=785.0 %, Resp=26 B/min, Pain=0, Jonathan=10, Galeas=2 16:01:47 Vitals capture stopped. 16:06:23 Patient moved to stretcher End Study - Contrast Media Used In Study Contrast Total Opened (mL) Total Used (mL) Total Wasted (mL) Omnipaque 190 190 0 End Study - Maximum Contrast Load Max Contrast Load (mL) 353.3 End Study - Radiation Exposure Fluoro Time (minutes) 15.1 End Study - Sheaths Sheaths Pulled By Sheath Hold Time (min) Saritha Rosario End Study - Patient Disposition Complications Transferred To Interventional Outcome No Telemetry Bed successful
[2017-11-22] MEDS ORDERED: IOHEXOL 350 MG/ML 100 ML BTL (for Cath Lab) OTHER ONE (16:25)
[2017-11-22] MEDS ORDERED: SODIUM CHLOR 0.9% 1000 ML INJ 1,000 ML IV SCH (16:27)
[2017-11-22] MEDS ORDERED: MISC INFORMATION XX ONE (16:30)
--- NOTE | 2017-11-22 16:32 | MA ---
cc: Saritha Rosario MD INDICATION: Non-ST elevation myocardial infarction, class 4 angina. PROCEDURE PERFORMED: 1. Right and left heart catheterization with left ventriculography and selective coronary angiography. 2. Angioplasty and stenting of the right coronary artery. 3. Moderate sedation. EXIT SITE: Right femoral artery. EQUIPMENT USED: A 5 Afghan pigtail catheter, 5 Afghan JL4 and AR1 coronary artery catheters. AR1 guide, BMW and Runthrough wires, 2.0 and 2.5 balloon for predilatation, 2.5 x 26 mm Integrity bare-metal stent at 28 atmospheres to the mid-RCA and 2.75 x 26 mm Integrity bare-metal stent at 12 atmospheres to the proximal-mid RCA. VESSEL: RCA 100% lesion length 42 mm, pre-EDILBERTO flow 0, post-EDILBERTO flow 3, post-stenosis 0. POST-INTERVENTIONAL ANGIOGRAPHY: Revealed excellent patency of the stented segment and no evidence of dissection, thrombosis or distal embolization. MEDICATIONS: Versed IV, fentanyl IV, heparin IV, nitroglycerin IC, Brilinta 180 mg p.o. CONTRAST: Omnipaque 190 mL. DIAGNOSES: 1. Non-ST elevation myocardial infarction. 2. Coronary artery disease with total occlusion of the mid-right coronary artery. 3. Mild left ventricular dysfunction, consistent with ischemic cardiomyopathy. 4. Successful angioplasty and stenting of the right coronary artery distal position. Mr. Jean will be monitored on telemetry after the procedure. We will continue aggressive modification of his cardiac risk factors. Will continue therapy with Brilinta for at least 1 month and as per . He was strongly encouraged to quit smoking. Saritha Rosario MD OYael/BERKLEY , 04:09 PM , 04:31 PM
--- NOTE | 2017-11-22 17:35 | HHI.HP ---
[facility] Admission Diagnosis NSTEMI, cephalgia, right eye blurred vision Diagnoses: Travel History International Travel<30 Days: No Contact w/Intl Traveler <30 Da: No Traveled to Known Affected Are: No History of Present Illness Mr. Nina is a 62-year-old male. He has a history of nicotine use, hypertension, and hepatitis C. She reports that he's been having blurred vision in his right eye and bilateral temporal headaches for 2 weeks. He's been told by some of his friends that he is having some slurred speech. Tenderness is present at his bilateral temporal areas. He came in today specifically for chest pain. Chest pain is central in his chest and has a tight feeling. Preliminary workup in the ER shows positive troponins. Cardiology has been quickly consulted and patient will go down for cardiac catheter. No nausea or vomiting. Patient's presently smoking about one half pack per day. Review of Systems Constitutional: DENIES: Fever, Chills, Night Sweats Eyes: COMPLAINS OF: Blurred vision, DENIES: Diplopia, Eye inflammation, Eye pain Ears, nose, mouth, throat: DENIES: Tinnitus, Hearing loss, Vertigo, Nasal discharge Respiratory: DENIES: Cough, Wheezing, Shortness of breath Cardiovascular: COMPLAINS OF: Chest pain, DENIES: Palpitations, Syncope Gastrointestinal: DENIES: Abdominal pain, Black stools, Bloody stools Musculoskeletal: DENIES: Joint pain, Muscle aches, Stiffness Integumentary: DENIES: Abnormal pigmentation, Nail changes, Pruritus, Rash Hematologic/lymphatic: DENIES: Bruising, Lymphadenopathy Immunologic/allergic: DENIES: Eczema, Urticaria Neurologic: COMPLAINS OF: Headache, DENIES: Abnormal gait, Paresthesias Psychiatric: DENIES: Anxiety, Confusion, Hallucinations Past Family Social History Past Medical History Hypertension Hepatitis C Past Surgical History None reported by patient Reported Medications Reported Meds & Active Scripts Active Reported Atenolol 50 Mg Tab 50 Mg PO DAILY Tylenol Extra Strength (Acetaminophen) 500 Mg Tablet 2 Tab PO Q6HR PRN Levofloxacin 500 Mg Tablet 500 Mg PO DAILY Prednisone 20 Mg Tab 20 Mg PO DAILY Allergies: Coded Allergies: No Known Allergies (Unverified , 11/22/17) Active Ordered Medications Administered Medications Medications (Trade) Dose Ordered Sig/Bianca Route PRN Reason Start Time Stop Time Status Last Admin Dose Admin Sodium Chloride 1,000 ml @ 100 mls/hr Q10H IV 11/22/17 13:40 11/22/17 14:30 Family History Cancer in mother (not specified) COPD in father Social History Patient is a smoker, smokes one half pack per day No alcohol abuse No illicit drug abuse Physical Exam Vital Signs Vital Signs Date Time Temp Pulse Resp B/P (MAP) Pulse Ox O2 Delivery O2 Flow Rate FiO2 11/22/17 14:18 98 Nasal Cannula 2.00 11/22/17 13:32 25 18 125/72 (89) 98 11/22/17 12:30 62 18 125/73 (90) 98 Nasal Cannula 2.00 11/22/17 12:00 16 11/22/17 11:58 77 18 124/72 (89) 98 Room Air 11/22/17 11:15 Room Air 11/22/17 11:05 98.0 66 14 145/83 (103) 96 Physical Exam GENERAL: NAD, A&Ox3 HEAD: Normocephalic. NECK: Supple, trachea midline. No lymphadenopathy. EYES: No scleral icterus. No injection or drainage. CARDIOVASCULAR: Regular rate and rhythm without murmurs, gallops, or rubs. RESPIRATORY: Breath sounds equal bilaterally. No accessory muscle use. GASTROINTESTINAL: Abdomen soft, non-tender, nondistended. MUSCULOSKELETAL: No cyanosis, or edema. SKIN: Warm and dry. NEURO: No focal neurological deficitis. Laboratory Laboratory Tests Test 11/22/17 10:48 White Blood Count 15.2 Red Blood Count 4.86 Hemoglobin 14.1 Hematocrit 42.1 Mean Corpuscular Volume 86.6 Mean Corpuscular Hemoglobin 28.9 Mean Corpuscular Hemoglobin Concent 33.4 Red Cell Distribution Width 14.1 Platelet Count 345 Mean Platelet Volume 7.4 Neutrophils (%) (Auto) 84.2 Lymphocytes (%) (Auto) 12.0 Monocytes (%) (Auto) 3.4 Eosinophils (%) (Auto) 0.0 Basophils (%) (Auto) 0.4 Neutrophils # (Auto) 12.8 Lymphocytes # (Auto) 1.8 Monocytes # (Auto) 0.5 Eosinophils # (Auto) 0.0 Basophils # (Auto) 0.1 CBC Comment DIFF FINAL Differential Comment Erythrocyte Sedimentation Rate 10 Prothrombin Time 10.8 Prothromb Time International Ratio 1.1 Activated Partial Thromboplast Time 24.5 Blood Urea Nitrogen 12 Creatinine 0.85 Random Glucose 135 Total Protein 8.0 Albumin 3.9 Calcium Level 9.3 Alkaline Phosphatase 86 Aspartate Amino Transf (AST/SGOT) 64 Alanine Aminotransferase (ALT/SGPT) 29 Total Bilirubin 0.3 Sodium Level 137 Potassium Level 4.2 Chloride Level 103 Carbon Dioxide Level 27.1 Anion Gap 7 Estimat Glomerular Filtration Rate 91 Total Creatine Kinase 444 Creatine Kinase MB 52.2 Creatine Kinase MB % 11.8 Troponin I 8.63 Result Diagram: 11/22/17 1048 11/22/17 1048 Pura VTE Risk Assessment Pura VTE Risk Assessment: No/Low Risk (score <= 1) Caprini Risk Assessment Model Point Value = 1 Point Value = 2 Point Value = 3 Point Value = 5 Age 41-60 Minor surgery BMI > 25 kg/m2 Swollen legs Varicose veins or History of unexplained or recurrent spontaneous Oral contraceptives or hormone replacement Sepsis (< 1 month) Serious lung disease, including pneumonia (< 1 month) Abnormal pulmonary function Acute myocardial infarction Congestive heart failure (< 1 month) History of inflammatory bowel disease Medical patient at bed rest Age 61-74 Arthroscopic surgery Major open surgery (> 45 min) Laparoscopic surgery (> 45 min) Malignancy Confined to bed (> 72 hours) Immobilizing plaster cast Central venous access Age >= 75 History of VTE Family history of VTE Factor V Leiden Prothrombin [id number] Lupus anticoagulant Anticardiolipin antibodies Elevated serum homocysteine Heparin-induced thrombocytopenia Other congenital or acquired thrombophilia Stroke (< 1 month) Elective arthroplasty Hip, pelvis, or leg fracture Acute spinal cord injury (< 1 month) Prophylaxis Regimen Total Risk Factor Score Risk Level Prophylaxis Regimen 0-1 Low Early ambulation 2 Moderate Order ONE of the following: *Sequential Compression Device (SCD) *Heparin 5000 units SQ BID 3-4 Higher Order ONE of the following medications: *Heparin 5000 units SQ TID *Enoxaparin/Lovenox 40 mg SQ daily (WT < 150 kg, CrCl > 30 mL/min) *Enoxaparin/Lovenox 30 mg SQ daily (WT < 150 kg, CrCl > 10-29 mL/min) *Enoxaparin/Lovenox 30 mg SQ BID (WT < 150 kg, CrCl > 30 mL/min) AND/OR *Sequential Compression Device (SCD) 5 or more Highest Order ONE of the following medications: *Heparin 5000 units SQ TID (Preferred with Epidurals) *Enoxaparin/Lovenox 40 mg SQ daily (WT < 150 kg, CrCl > 30 mL/min) *Enoxaparin/Lovenox 30 mg SQ daily (WT < 150 kg, CrCl > 10-29 mL/min) *Enoxaparin/Lovenox 30 mg SQ BID (WT < 150 kg, CrCl > 30 mL/min) AND *Sequential Compression Device (SCD) Assessment and Plan Problem List: (1) Blurred vision, right eye ICD Code: H53.8 - Other visual disturbances Status: Acute (2) NSTEMI (non-ST elevated myocardial infarction) ICD Code: I21.4 - Non-ST elevation (NSTEMI) myocardial infarction Status: Acute (3) Cephalgia ICD Code: R51 - Headache Status: Acute Assessment and Plan 62-year-old male admitted secondary to chest pain with positive troponins Acute myocardial infarction Patient is taken to heart catheter while I am seeing him Cardiology following Monitor on telemetry Bilateral temporal pain Headache Blurred vision at right Slurred speech Evaluation for CVA in process MRI pending ESR is within normal limits Hypertension Continue baseline treatment Follow blood pressures Adjust treatments as needed DVT Prophylaxis Lovenox Physician Certification 2 Midnight Certification Type: Admission for Inpatient Services Order for Inpatient Services The services are ordered in accordance with Medicare regulations or non- Medicare payer requirements, as applicable. In the case of services not specified as inpatient-only, they are appropriately provided as inpatient services in accordance with the 2-midnight benchmark. Estimated LOS (days): 2 days is the estimated time the patient will need to remain in the hospital, assuming treatment plan goals are met and no additional complications. Post-Hospital Plan: Home Graham Alexander MD Nov 22, 2017 17:35
[2017-11-22] MEDS: MORPHINE SULFATE 2 MG/ML INJ IV PUSH PRN (19:42)
[2017-11-22 20:55] LABS: AUTOMATED NEUTROPHIL # 10.7 TH/MM3 (1.8-7.7); BASOPHIL # 0.1 TH/MM3 (0-0.2); BASOPHIL % 0.5 % (0.0-2.0); EOSINOPHIL % 0.1 % (0.0-4.0); HEMATOCRIT 35.7 % (39.0-51.0); LYMPH % 19.7 % (9.0-44.0); LYMPHOCYTE # 2.9 TH/MM3 (1.0-4.8); MEAN CELL VOLUME 87.2 FL (80.0-100.0); MEAN CORPUSCULAR HEMOGLOBIN 29.3 PG (27.0-34.0); MEAN CORPUSCULAR HGB CONC 33.6 % (32.0-36.0); MEAN PLATELET VOLUME 7.8 FL (7.0-11.0); MONO % 7.4 % (0.0-8.0); MONOCYTE # 1.1 TH/MM3 (0-0.9); NEUT % 72.3 % (16.0-70.0); PLATELET COUNT 290 TH/MM3 (150-450); RED BLOOD COUNT 4.09 MIL/MM3 (4.50-5.90); RED CELL DISTRIBUTION WIDTH 14.1 % (11.6-17.2); WHITE BLOOD COUNT 14.7 TH/MM3 (4.0-11.0)
[2017-11-22] MEDS: CARVEDILOL 3.125 MG TAB PO SCH (21:00)
[2017-11-22] MEDS: SODIUM CHLORIDE 0.9% FLUSH 10 ML FLUSH IV FLUSH SCH (21:00)
[2017-11-22] MEDS ORDERED: SODIUM CHLORIDE 0.9% FLUSH 10 ML FLUSH IV FLUSH SCH (21:00)
[2017-11-22 21:40] LABS: TROPONIN I 31.2 NG/ML (0.02-0.05)
[2017-11-22] MEDS: ATORVASTATIN 10 MG TAB PO SCH (23:03)
[2017-11-23] VITALS (21 sets, daily range): BP systolic 88–129; BP diastolic 49–70; PULSE 54–89; RESP 18–20; TEMP 97.3–98.4; O2SAT 90–97
[2017-11-23 01:57] LABS: TROPONIN I 30.6 NG/ML (0.02-0.05)
[2017-11-23] MEDS: SODIUM CHLOR 0.9% 1000 ML INJ 1,000 ML IV SCH ×2 (04:34→09:40)
[2017-11-23 05:55] LABS: AUTOMATED NEUTROPHIL # 5.5 TH/MM3 (1.8-7.7); BASOPHIL % 0.4 % (0.0-2.0); EOSINOPHIL # 0.1 TH/MM3 (0-0.4); EOSINOPHIL % 0.8 % (0.0-4.0); HEMATOCRIT 32.7 % (39.0-51.0); HEMOGLOBIN 11.3 GM/DL (13.0-17.0); LYMPH % 36.5 % (9.0-44.0); LYMPHOCYTE # 3.7 TH/MM3 (1.0-4.8); MEAN CORPUSCULAR HEMOGLOBIN 29.9 PG (27.0-34.0); MEAN CORPUSCULAR HGB CONC 34.4 % (32.0-36.0); MEAN PLATELET VOLUME 7.8 FL (7.0-11.0); MONO % 8.2 % (0.0-8.0); MONOCYTE # 0.8 TH/MM3 (0-0.9); NEUT % 54.1 % (16.0-70.0); PLATELET COUNT 273 TH/MM3 (150-450); RED BLOOD COUNT 3.76 MIL/MM3 (4.50-5.90); WHITE BLOOD COUNT 10.1 TH/MM3 (4.0-11.0)
[2017-11-23 06:37] LABS: ALBUMIN 3.1 GM/DL (3.4-5.0); ALKALINE PHOSPHATASE 68 U/L (45-117); ALT (GPT) 25 U/L (12-78); AST (GOT) 67 U/L (15-37); BICARBONATE 29.1 MEQ/L (21.0-32.0); BLOOD UREA NITROGEN 15 MG/DL (7-18); CALCIUM 8.6 MG/DL (8.5-10.1); CHLORIDE 105 MEQ/L (98-107); CHOLESTEROL 152 MG/DL (120-200); CHOLESTEROL/ HDL RATIO 4.04 RATIO; GLOMERULAR FILTRATION RATE 85 ML/MIN (>89); GLUCOSE,RANDOM 91 MG/DL (74-106); HDL CHOLESTEROL 37.6 MG/DL (40.0-60.0); LDL CHOLESTEROL 86 MG/DL (0-99); SODIUM (NA) 140 MEQ/L (136-145); TOTAL BILIRUBIN ADULT 0.3 MG/DL (0.2-1.0); TOTAL PROTEIN 6.2 GM/DL (6.4-8.2); TRIGLYCERIDES 143 MG/DL (42-150)
[2017-11-23] MEDS: CARVEDILOL 3.125 MG TAB PO SCH ×2 (08:29→21:12)
[2017-11-23] MEDS: TICAGRELOR 90 MG TAB PO SCH ×2 (08:29→21:12)
[2017-11-23] MEDS: ASPIRIN 81 MG CHEW TAB PO SCH (08:29)
[2017-11-23] MEDS: SODIUM CHLORIDE 0.9% FLUSH 10 ML FLUSH IV FLUSH SCH ×2 (08:30→21:00)
--- NOTE | 2017-11-23 08:35 | PD.CARD.PN ---
Subjective Subjective Remarks No CP or SOB, still c/o CANALES and neck pain Objective Medications Current Medications Medications (Trade) Dose Ordered Sig/Bianca Route Start Time Stop Time Status Last Admin Sodium Chloride 1,000 ml @ 100 mls/hr Q10H IV 11/22/17 13:40 11/23/17 04:34 (Morphine Inj) 2 mg Q3H PRN IV PUSH 11/22/17 13:45 11/22/17 19:42 (Morphine Inj) 4 mg Q3H PRN IV PUSH 11/22/17 13:45 (Narcan Inj) 0.4 mg UNSCH PRN IV PUSH 11/22/17 13:45 (Milk Of Magnesia Liq) 30 ml Q12H PRN PO 11/22/17 13:45 (NS Flush) 2 ml BID IV FLUSH 11/22/17 21:00 11/22/17 21:00 (NS Flush) 2 ml UNSCH PRN IV FLUSH 11/22/17 13:45 (Nitrostat Sl) 0.4 mg Q5M PRN SL 11/22/17 13:45 (Aspirin Chew) 81 mg DAILY PO 11/23/17 09:00 (Brilinta) 90 mg BID PO 11/23/17 09:00 (Coreg) 3.125 mg BID PO 11/22/17 21:00 (Lipitor) 40 mg HS PO 11/22/17 21:00 11/22/17 23:03 (Lovenox Inj) 40 mg Q24H SQ 11/23/17 09:00 Vital Signs / I&O Vital Signs Date Time Temp Pulse Resp B/P (MAP) Pulse Ox O2 Delivery O2 Flow Rate FiO2 11/23/17 06:00 62 11/23/17 05:00 54 11/23/17 04:00 97.8 57 20 104/62 (76) 94 11/23/17 04:00 60 11/23/17 03:00 62 11/23/17 02:00 62 11/23/17 01:00 66 11/23/17 00:00 56 11/23/17 00:00 98.4 61 20 88/49 (62) 97 11/22/17 23:00 60 11/22/17 22:00 56 11/22/17 21:03 95 Nasal Cannula 2.00 11/22/17 21:00 68 11/22/17 20:00 51 11/22/17 20:00 97.7 65 20 84/53 (63) 93 11/22/17 19:00 62 11/22/17 18:00 56 11/22/17 17:43 98.0 52 18 90/59 (69) 98 11/22/17 17:00 54 11/22/17 14:18 98 Nasal Cannula 2.00 11/22/17 13:32 25 18 125/72 (89) 98 11/22/17 12:30 62 18 125/73 (90) 98 Nasal Cannula 2.00 11/22/17 12:00 16 11/22/17 11:58 77 18 124/72 (89) 98 Room Air 11/22/17 11:15 Room Air 11/22/17 11:05 98.0 66 14 145/83 (103) 96 I/O 11/22/17 11/22/17 11/22/17 11/23/17 11/23/17 11/23/17 07:00 15:00 23:00 07:00 15:00 23:00 Intake Total 1500 ml 240 ml Output Total 325 ml Balance 1500 ml -85 ml Intake Oral 240 ml IV Total 1500 ml Output Urine Total 325 ml Physical Exam GENERAL: In NAD SKIN: Warm and dry. HEAD: Normocephalic. EYES: No scleral icterus. No injection or drainage. NECK: Supple, trachea midline. No JVD or lymphadenopathy. CARDIOVASCULAR: Regular rate and rhythm without murmurs, gallops, or rubs. RESPIRATORY: Breath sounds equal bilaterally. No accessory muscle use. GASTROINTESTINAL: Abdomen soft, non-tender, nondistended. MUSCULOSKELETAL: No cyanosis, or edema. Groin stable Laboratory Laboratory Tests Test 11/22/17 10:48 11/22/17 19:41 11/23/17 01:00 11/23/17 04:52 White Blood Count 15.2 TH/MM3 14.7 TH/MM3 10.1 TH/MM3 Red Blood Count 4.86 MIL/MM3 4.09 MIL/MM3 3.76 MIL/MM3 Hemoglobin 14.1 GM/DL 12.0 GM/DL 11.3 GM/DL Hematocrit 42.1 % 35.7 % 32.7 % Mean Corpuscular Volume 86.6 FL 87.2 FL 87.0 FL Mean Corpuscular Hemoglobin 28.9 PG 29.3 PG 29.9 PG Mean Corpuscular Hemoglobin Concent 33.4 % 33.6 % 34.4 % Red Cell Distribution Width 14.1 % 14.1 % 14.0 % Platelet Count 345 TH/MM3 290 TH/MM3 273 TH/MM3 Mean Platelet Volume 7.4 FL 7.8 FL 7.8 FL Neutrophils (%) (Auto) 84.2 % 72.3 % 54.1 % Lymphocytes (%) (Auto) 12.0 % 19.7 % 36.5 % Monocytes (%) (Auto) 3.4 % 7.4 % 8.2 % Eosinophils (%) (Auto) 0.0 % 0.1 % 0.8 % Basophils (%) (Auto) 0.4 % 0.5 % 0.4 % Neutrophils # (Auto) 12.8 TH/MM3 10.7 TH/MM3 5.5 TH/MM3 Lymphocytes # (Auto) 1.8 TH/MM3 2.9 TH/MM3 3.7 TH/MM3 Monocytes # (Auto) 0.5 TH/MM3 1.1 TH/MM3 0.8 TH/MM3 Eosinophils # (Auto) 0.0 TH/MM3 0.0 TH/MM3 0.1 TH/MM3 Basophils # (Auto) 0.1 TH/MM3 0.1 TH/MM3 0.0 TH/MM3 CBC Comment DIFF FINAL DIFF FINAL DIFF FINAL Differential Comment Erythrocyte Sedimentation Rate 10 mm/hr Prothrombin Time 10.8 SEC Prothromb Time International Ratio 1.1 RATIO Activated Partial Thromboplast Time 24.5 SEC Blood Urea Nitrogen 12 MG/DL 15 MG/DL Creatinine 0.85 MG/DL 0.90 MG/DL Random Glucose 135 MG/DL 91 MG/DL Total Protein 8.0 GM/DL 6.2 GM/DL Albumin 3.9 GM/DL 3.1 GM/DL Calcium Level 9.3 MG/DL 8.6 MG/DL Alkaline Phosphatase 86 U/L 68 U/L Aspartate Amino Transf (AST/SGOT) 64 U/L 67 U/L Alanine Aminotransferase (ALT/SGPT) 29 U/L 25 U/L Total Bilirubin 0.3 MG/DL 0.3 MG/DL Sodium Level 137 MEQ/L 140 MEQ/L Potassium Level 4.2 MEQ/L 3.8 MEQ/L Chloride Level 103 MEQ/L 105 MEQ/L Carbon Dioxide Level 27.1 MEQ/L 29.1 MEQ/L Anion Gap 7 MEQ/L 6 MEQ/L Estimat Glomerular Filtration Rate 91 ML/MIN 85 ML/MIN Total Creatine Kinase 444 U/L 495 U/L 431 U/L 392 U/L Creatine Kinase MB 52.2 NG/ML 55.7 NG/ML 46.4 NG/ML 40.5 NG/ML Creatine Kinase MB % 11.8 % 11.3 % 10.8 % 10.3 % Troponin I 8.63 NG/ML 31.20 NG/ML 30.60 NG/ML Triglycerides Level 143 MG/DL Cholesterol Level 152 MG/DL LDL Cholesterol 86 MG/DL HDL Cholesterol 37.6 MG/DL Cholesterol/HDL Ratio 4.04 RATIO Imaging Last [address] 11/22/17 112 Signed Impressions: Service Date/Time: Wednesday, November 22, 2017 12:14 - CONCLUSION: 1. Unremarkable exam. 2. No evidence of acute infarct, hemorrhage, mass or edema. Roman Zimmer MD Chest X-Ray 11/22/171126 Signed Impressions: Service Date/Time: Wednesday, November 22, 2017 11:46 - CONCLUSION: No acute disease. Roman Zimmer MD Assessment and Plan Problem List: (1) NSTEMI (non-ST elevated myocardial infarction) ICD Codes: I21.4 - Non-ST elevation (NSTEMI) myocardial infarction Status: Acute (2) CAD (coronary artery disease) ICD Codes: I25.10 - Atherosclerotic heart disease of [place] coronary artery without angina pectoris (3) Stented coronary artery ICD Codes: Z95.5 - Presence of coronary angioplasty implant and graft (4) HTN (hypertension) ICD Codes: I10 - Essential (primary) hypertension (5) Smoking ICD Codes: F17.200 - Nicotine dependence, unspecified, uncomplicated (6) Cephalgia ICD Codes: R51 - Headache Status: Acute (7) Hepatitis C ICD Codes: B19.20 - Unspecified viral hepatitis C without hepatic coma Assessment and Plan Cath with 100% RCA, stented with BMS. Continue Brilinta, baby ASA, atorvastatin , beta daisy. Increase activity. Eval for CANALES/neck pain. OK to discharge from cardiac standpoint. [facility]. Saritha Rosario MD Nov 23, 2017 08:35
[2017-11-23] MEDS ORDERED: ENOXAPARIN SODIUM 40 MG/0.4 ML SYRINGE SQ SCH (09:00)
--- NOTE | 2017-11-23 10:09 | RADRPT ---
EXAM DATE/TIME: 11/23/2017 09:37 [place] COMPARISON: CT BRAIN W/O CONTRAST, November 22, 2017, 12:14. INDICATIONS : Blurry vision. MEDICAL HISTORY : Hypertension. SURGICAL HISTORY : cardiac stent, thumb surgery, hernia ENCOUNTER: Subsequent ACUITY: 2 day PAIN SCORE: 0/10 LOCATION: cranial TECHNIQUE: Multiplanar, multisequence MRI of the brain was performed without contrast. FINDINGS: CEREBRUM: There is mild generalized atrophy. Ventricles are normal. No evidence of midline shift, mass lesion, hemorrhage or acute infarction. No extraaxial fluid collections are seen. The pituitary gland and suprasellar cistern are normal in configuration. WHITE MATTER: There is very mild periventricular and subcortical white matter signal change bilaterally. POSTERIOR FOSSA: The cerebellum and brainstem are intact. The 4th ventricle is midline. The cerebellopontine angle is unremarkable. The cerebellar tonsils are normal in position. DIFFUSION IMAGING: No focal areas of restricted diffusion are seen. No evidence of acute infarction. EXTRACRANIAL: The visualized portions of the orbits and paranasal sinuses are unremarkable. CONCLUSION: 1. No acute intracranial abnormality is identified. There are no findings to indicate recent ischemia . 2. Chronic changes include mild generalized atrophy and mild periventricular white matter change ulisses acteristic of chronic microvascular ischemia. Ulysses Westfall MD on November 23, 2017 at 10:05 Board Certified Radiologist. This report was verified electronically.
[2017-11-23] MEDS: MORPHINE SULFATE 2 MG/ML INJ IV PUSH PRN ×2 (11:32→16:59)
[2017-11-23] MEDS: ESCITALOPRAM OXALATE 10 MG TAB PO SCH (11:32)
--- NOTE | 2017-11-23 11:33 | EKG ---
Date Performed: 11/22/2017 Time Performed: 23:02:12 PTAGE: 62 years EKG: Sinus bradycardia ST segment elevation is noted in II, III and AVF. This is unchanged from the prior study. Borderline ECG PREVIOUS TRACING : 11/22/2017 17.40 DOCTOR: Marc Ramos Interpretating Date/Time 11/23/2017 12:09:26
--- NOTE | 2017-11-23 11:33 | EKG ---
Date Performed: 11/23/2017 Time Performed: 06:04:12 PTAGE: 62 years EKG: Sinus rhythm Borderline ECG PREVIOUS TRACING : 11/22/2017 23.02 Compared to prior tracing, ST segment elevation continues t o be noted in the inferior leads. This is unchanged from the prior study. Clinical correlation is r ecommended. DOCTOR: Marc Ramos Interpretating Date/Time 11/23/2017 12:10:22
--- NOTE | 2017-11-23 11:33 | EKG ---
Date Performed: 11/22/2017 Time Performed: 11:53:54 PTAGE: 62 years EKG: Sinus rhythm WITH SINUS ARRHYTHMIA WITH SHORT NV INTERVAL BORDERLINE ECG ST segment elevation is noted in leads I I, III and AVF. Consider acute infarction. NO PREVIOUS TRACING DOCTOR: Marc Ramos Interpretating Date/Time 11/23/2017 12:08:37
--- NOTE | 2017-11-23 11:38 | MB ---
cc: Marc Bernabe MD DATE OF CONSULT: REASON FOR CONSULTATION: 62 year old right handed man with hypertension, hepatitis C, which evidently may or may not be active. In the past he has had some nausea and vomiting with aspirin and he does not take one. He has had headaches on and off and about three weeks ago he had headache which got worse and he had some sweating, some chest pain and palpitations. He also noticed that his right eye was blurry when he woke up in the morning. [facility]. Occasionally he has some left tingling on his fingers, but nothing new and no asymmetrical weakness or numbness. REVIEW OF SYSTEMS: He denied any diabetes, hypercholesteremia, SC, cardiac stents, angioplasty, atrial fibrillation, coumadin, although he recently had a stent done here. No history of renal, hepatitic or pulmonary disease, although he is a chronic smoker and has a significant cough, no history of thyroid, lupus, ulcer, cancer, seizure or stroke. SOCIAL HISTORY: He is a smoker, occasionally has a drink, he lives by myself. FAMILY HISTORY: Positive for cancer, negative for seizure, or stroke, positive for emphysema in his father. MEDICATIONS: 1. Atenolol. 2. Tylenol 3. Levofloxacin 4. Prednisone 20 mg per day. ALLERGIES: No known drug allergies. PHYSICAL EXAMINATION: VITAL SIGNS: Afebrile, 74, 113/70, O2 saturation 94%. He has never been significantly hypertensive. He did have some low blood pressure to 84/53. NECK: There were no carotid bruits. HEART: Regular rhythm, I did not detect a murmur. He has a little bit of a wheeze across his chest. HEAD: Pupils are equal, visual clay are full. Visual acuity 20/200 on the right eye, 20/50 in the left without his reading glasses. Extraocular movements are intact without nystagmus. His temples he said were mildly tender bilaterally. No nodularity was noted. Visual clay are full. There is no scotoma, extraocular movements intact, without nystagmus. FACE: The face is symmetric with normal station. Tongue was midline, no drift, normal strength in upper and lower extremities bilaterally. DTRs absent throughout. Toes downgoing bilaterally. Pinprick was intact throughout except for diminished in the left median nerve distribution. He is not ataxic on finger/nose. Speech is fluent, he is not aphasic. LABORATORY FINDINGS: His CBC initially 14, white count now down to 10, otherwise essentially normal. Sed rate is only 10. His BMP is normal. LFT's minimally elevated. CPK 400, Troponin positive to 30. Albumin normal. LDL cholesterol 86. Coags are normal. MRI of the brain was normal. I reviewed those films. Chest x-ray was negative. CAT scan of the brain normal. He has been in sinus rhythm here. He had one white matter change, on his MRI review of the films he had blend white matter change on the right subcortical region and a few smattering of white matter changes bilaterally and a little bit more on the left then the right. The right orbit and optic nerve looked okay on the MRI. IMPRESSION/PLAN: Some blurry vision in the right eye. Some headache with a normal sed rate. We will check a CRP. I noted he has been started on Aspirin and Brilinta after having a stent while on some Lovenox and the Lipitor. We can just try him on Tylenol for the headache and we will check a MRA of the carotids and [place] for the history of the blurriness in the right eye. He should have ophthalmology see him to look in the eye itself as it appears to be more monocular and I do not see any definite visual field defect which would indicate a central retinal artery occlusion or branch retinal artery occlusion. So he does need to see Ophthalmology and we will put a consult in for that. Overall I thought he looked well neurologically. I am not sure how to put the headaches into the SC, though they appear to be somewhat better. I have asked him of course to quit smoking, I am not so sure he is keen on doing that. I have also recommended some Lexapro for anxiety, he says he has PTSD from being in the [employer] when they would not let him go home when his was having a baby. We will check an echocardiogram and Holter monitor on him and get some additional blood work. MD DUSTIN Painting/JACINTO , 10:55 AM , 11:36 AM
--- NOTE | 2017-11-23 11:41 | HHI.PR ---
Subjective Remarks Patient says he is feeling all right. Denies any chest pain or shortness of breath currently. Reports continued blurriness in the right eye which is new. Objective Vital Signs Date Time Temp Pulse Resp B/P (MAP) Pulse Ox O2 Delivery O2 Flow Rate FiO2 11/23/17 10:27 81 11/23/17 09:00 82 11/23/17 08:15 97.3 74 18 113/70 (84) 94 11/23/17 08:15 56 11/23/17 06:00 62 11/23/17 05:00 54 11/23/17 04:00 97.8 57 20 104/62 (76) 94 11/23/17 04:00 60 11/23/17 03:00 62 11/23/17 02:00 62 11/23/17 01:00 66 11/23/17 00:00 56 11/23/17 00:00 98.4 61 20 88/49 (62) 97 11/22/17 23:00 60 11/22/17 22:00 56 11/22/17 21:03 95 Nasal Cannula 2.00 11/22/17 21:00 68 11/22/17 20:00 51 11/22/17 20:00 97.7 65 20 84/53 (63) 93 11/22/17 19:00 62 11/22/17 18:00 56 11/22/17 17:43 98.0 52 18 90/59 (69) 98 11/22/17 17:00 54 11/22/17 14:18 98 Nasal Cannula 2.00 11/22/17 13:32 25 18 125/72 (89) 98 11/22/17 12:30 62 18 125/73 (90) 98 Nasal Cannula 2.00 11/22/17 12:00 16 11/22/17 11:58 77 18 124/72 (89) 98 Room Air I/O 11/22/17 11/22/17 11/22/17 11/23/17 11/23/17 11/23/17 07:00 15:00 23:00 07:00 15:00 23:00 Intake Total 1500 ml 240 ml Output Total 325 ml Balance 1500 ml -85 ml Intake Oral 240 ml IV Total 1500 ml Output Urine Total 325 ml Result Diagram: 11/23/17 0452 11/23/17 045 Objective Remarks GENERAL: Patient sitting up in chair. Appears comfortable. Alert and oriented 3. SKIN: Warm and dry. HEAD: Normocephalic. EYES: No scleral icterus. No injection or drainage. NECK: Supple, trachea midline. No JVD. CARDIOVASCULAR: Regular rate and rhythm without murmurs, gallops, or rubs. RESPIRATORY: Breath sounds equal bilaterally. No accessory muscle use. GASTROINTESTINAL: Abdomen soft, non-tender, nondistended. MUSCULOSKELETAL: No cyanosis, or edema. BACK: Nontender without obvious deformity. No CVA tenderness. A/P Assessment and Plan 62-year-old male admitted secondary to chest pain with positive troponins //Acute myocardial infarction Patient is taken to heart catheter while I am seeing him Cardiology following Monitor on telemetry =Cath with 100% RCA, stented with BMS. Continue Brilinta, baby ASA, atorvastatin , beta daisy. //Bilateral temporal pain //Headache //Blurred vision at right //Slurred speech Evaluation for CVA in process MRI pending ESR is within normal limits = MRI still pending this morning. Neurology consult ordered. MRI has returned with no acute findings. = Appreciate neurology's assistance. Ophthalmology consult obtained. Follow- up ophthalmology consult //Hypertension Continue baseline treatment Follow blood pressures Adjust treatments as needed DVT Prophylaxis Lovenox Discharge Planning Cleared by cardiology Discharge when cleared by neurology and ophthalmology. Probably discharge tomorrow David Larson MD Nov 23, 2017 11:41
--- NOTE | 2017-11-23 12:24 | EKG ---
Date Performed: 11/22/2017 Time Performed: 17:40:24 PTAGE: 62 years EKG: CONSIDER ACUTE ST ELEVATION PR Sinus bradycardia with sinus arrhythmia Short [place] int erval Inferior ST elevation, CONSIDER ACUTE INFARCT Abnormal ECG Since the prior tracing, there has b een no significant change DOCTOR: Marc Ramos Interpretating Date/Time 11/23/2017 12:22:08
[2017-11-23 12:34] LABS: C-REACTIVE PROTEIN 0.91 MG/DL (0.00-0.30)
[2017-11-23 12:59] LABS: FREE T4 0.77 NG/DL (0.76-1.46)
[2017-11-23] MEDS ORDERED: GADODIAMIDE PF 287 MG/ML 20 ML VIAL (for RAD MRI) IVCONTRAST ONE (14:52)
--- NOTE | 2017-11-23 15:39 | RADRPT ---
EXAM DATE/TIME: 11/23/2017 14:21 [facility] COMPARISON: No previous studies available for comparison. INDICATIONS : Blurred vision. MEDICAL HISTORY : Hypertension. SURGICAL HISTORY : cardiac stent, thumb surgery, hernia ENCOUNTER: Subsequent ACUITY: 2 day PAIN SCORE: 0/10 LOCATION: head. Please note a normal MRA of the brain does not entirely exclude the possibility of a small aneurysm, nor the possibility of distal intracranial vessel disease. TECHNIQUE: 3D time of flight MRA was performed. Source images, multiplanar STS MIP, and 3D volume MIP reconstru ctions were reviewed. FINDINGS: There is excellent visualization of the major intracranial arteries out to the second-order branch ve ssels. There is no evidence for aneurysm, vessel truncation or stenosis, and no evidence for vascula r malformation. CONCLUSION: Negative MRA of the brain Jose Reyes MD FACR on November 23, 2017 at 15:38 Board Certified Radiologist. This report was verified electronically.
--- NOTE | 2017-11-23 16:38 | RADRPT ---
EXAM DATE/TIME: 11/23/2017 14:21 [facility] COMPARISON: MRI BRAIN W/O CONTRAST, November 23, 2017, 9:37. INDICATIONS : Stenosis. CONTRAST: 20 cc Omniscan (gadodiamide) IV MEDICAL HISTORY : Hypertension. SURGICAL HISTORY : cardiac stent, thumb surgery, hernia ENCOUNTER: Subsequent ACUITY: 2 day PAIN SCORE: 0/10 LOCATION: neck. Percent stenosis is calculated using the diameter of the stenotic region over the diameter of the nor mal distal internal carotid artery. TECHNIQUE: Bolus infused MRA of the extracranial circulation was performed using a neurovascular coil. Post pro cessing was performed including rotating subvolume maximum intensity projections of each carotid isis ry, rotating full volume maximum intensity projections of both carotid arteries, sagittal and coronal sliding thin slab reformations of each carotid artery, and left oblique sliding thin slab reformatio n through the aortic arch to include the origin of the arch branch vessels. FINDINGS: AORTIC ARCH: There is a three vessel origin of the great vessels from the aorta. No evidence of ostial narrowing. RIGHT CAROTID: The common carotid artery is intact. The carotid bulb has a normal configuration without ulceration or narrowing. The internal carotid artery lumen is smooth without stenosis. The external carotid ar kol[place] is intact. LEFT CAROTID: The common carotid artery is intact. The carotid bulb has a normal configuration without ulceration or narrowing. The internal carotid artery lumen is smooth without stenosis. The external carotid ar kol[place] is intact. VERTEBRALS: The vertebral arteries have a symmetric diameter. No stenotic lesions are seen. CONCLUSION: Normal examination. Ulysses Lizarraga MD on November 23, 2017 at 16:34 Board Certified Radiologist. This report was verified electronically.
[2017-11-23] MEDS: ATORVASTATIN 10 MG TAB PO SCH (21:12)
[2017-11-24] VITALS (21 sets, daily range): BP systolic 91–122; BP diastolic 62–64; PULSE 55–74; RESP 18; TEMP 97.9–98.6; O2SAT 94–97
[2017-11-24] MEDS: MORPHINE SULFATE 2 MG/ML INJ IV PUSH PRN (01:01)
--- NOTE | 2017-11-24 07:48 | HHI.PR ---
Objective Vital Signs Date Time Temp Pulse Resp B/P (MAP) Pulse Ox O2 Delivery O2 Flow Rate FiO2 11/24/17 06:00 62 11/24/17 05:00 63 11/24/17 04:45 61 11/24/17 04:00 98.6 63 18 91/64 (73) 97 11/24/17 03:00 63 11/24/17 01:00 61 11/24/17 00:18 98.6 61 18 111/64 (80) 97 11/24/17 00:00 61 11/23/17 21:00 61 11/23/17 20:00 97.7 61 18 120/63 (82) 97 11/23/17 20:00 61 11/23/17 18:00 55 11/23/17 17:38 58 11/23/17 17:18 16 11/23/17 16:01 56 11/23/17 15:31 58 11/23/17 15:31 98.2 89 18 129/69 (89) 97 11/23/17 14:00 63 11/23/17 13:11 61 11/23/17 12:28 66 11/23/17 12:25 73 11/23/17 12:25 97.8 61 18 104/57 (73) 96 11/23/17 10:27 81 11/23/17 10:00 90 11/23/17 09:00 82 11/23/17 08:15 97.3 74 18 113/70 (84) 94 11/23/17 08:15 56 I/O 11/23/17 11/23/17 11/23/17 11/24/17 11/24/17 11/24/17 07:00 15:00 23:00 07:00 15:00 23:00 Intake Total 240 ml 480 ml 240 ml Output Total 325 ml 900 ml Balance -85 ml -420 ml 240 ml Intake Oral 240 ml 480 ml 240 ml Output Urine Total 325 ml 900 ml # Voids 3 # Bowel Movements 0 Result Diagram: 11/23/1745111/23/17451 Objective Remarks still dec va od hard time reading awake alert vff od no scotoma Assessment and Plan Assessment and Plan imp mrax2 nl mri neg esr 10 likely small occluusion to eye but needs optho to see he can dc when they clear him and if echo neg holter pend Marc Bernabe MD Nov 24, 2017 07:48
[2017-11-24] MEDS: SODIUM CHLORIDE 0.9% FLUSH 10 ML FLUSH IV FLUSH SCH (08:51)
[2017-11-24] MEDS: TICAGRELOR 90 MG TAB PO SCH (08:51)
[2017-11-24] MEDS: CARVEDILOL 3.125 MG TAB PO SCH (08:51)
[2017-11-24] MEDS: ESCITALOPRAM OXALATE 10 MG TAB PO SCH (08:51)
[2017-11-24] MEDS: ASPIRIN 81 MG CHEW TAB PO SCH (08:51)
--- NOTE | 2017-11-24 10:10 | HHI.PR ---
Subjective Remarks Patient says he is feeling all right. Denies any chest pain or shortness of breath currently. Reports continued blurriness in the right eye which is new. Objective Vital Signs Date Time Temp Pulse Resp B/P (MAP) Pulse Ox O2 Delivery O2 Flow Rate FiO2 11/24/17 06:00 62 11/24/17 05:00 63 11/24/17 04:45 61 11/24/17 04:00 98.6 63 18 91/64 (73) 97 11/24/17 03:00 63 11/24/17 01:00 61 11/24/17 00:18 98.6 61 18 111/64 (80) 97 11/24/17 00:00 61 11/23/17 21:00 61 11/23/17 20:00 97.7 61 18 120/63 (82) 97 11/23/17 20:00 61 11/23/17 18:00 55 11/23/17 17:38 58 11/23/17 17:18 16 11/23/17 16:01 56 11/23/17 15:31 58 11/23/17 15:31 98.2 89 18 129/69 (89) 97 11/23/17 14:00 63 11/23/17 13:11 61 11/23/17 12:28 66 11/23/17 12:25 73 11/23/17 12:25 97.8 61 18 104/57 (73) 96 11/23/17 10:27 81 I/O 11/23/17 11/23/17 11/23/17 11/24/17 11/24/17 11/24/17 07:00 15:00 23:00 07:00 15:00 23:00 Intake Total 240 ml 480 ml 240 ml Output Total 325 ml 900 ml Balance -85 ml -420 ml 240 ml Intake Oral 240 ml 480 ml 240 ml Output Urine Total 325 ml 900 ml # Voids 3 # Bowel Movements 0 Result Diagram: 11/23/1745111/23/17451 Objective Remarks GENERAL: Patient sitting up in chair. Appears comfortable. Alert and oriented 3. SKIN: Warm and dry. HEAD: Normocephalic. EYES: No scleral icterus. No injection or drainage. Patient has had dilated eye exam on the right. NECK: Supple, trachea midline. No JVD. CARDIOVASCULAR: Regular rate and rhythm without murmurs, gallops, or rubs. RESPIRATORY: Breath sounds equal bilaterally. No accessory muscle use. GASTROINTESTINAL: Abdomen soft, non-tender, nondistended. MUSCULOSKELETAL: No cyanosis, or edema. BACK: Nontender without obvious deformity. No CVA tenderness. A/P Assessment and Plan 62-year-old male admitted secondary to chest pain with positive troponins //Acute myocardial infarction Patient is taken to heart catheter while I am seeing him Cardiology following Monitor on telemetry =Cath with 100% RCA, stented with BMS. Continue Brilinta, baby ASA, atorvastatin , beta daisy. //Bilateral temporal pain //Headache //Blurred vision at right //Slurred speech Evaluation for CVA in process MRI pending ESR is within normal limits = MRI still pending this morning. Neurology consult ordered. MRI has returned with no acute findings. = Appreciate neurology's assistance. Ophthalmology consult obtained. Follow- up ophthalmology consult = Pending ophthalmology clearance. //Hypertension Continue baseline treatment Follow blood pressures Adjust treatments as needed DVT Prophylaxis Lovenox Discharge Planning Cleared by cardiology = Discharge if cleared by ophthalmology and echo is negative. =Follow-up with cardiology, ophthalmology as outpatient. David Larson MD Nov 24, 2017 10:10
[2017-11-24] MEDS ORDERED: CARV3.125 PO (10:20)
[2017-11-24] MEDS ORDERED: LIPI10TA PO (10:20)
[2017-11-24] MEDS ORDERED: BRIL90TA PO (10:20)
[2017-11-24] MEDS ORDERED: ESCI10TA PO (10:20)
[2017-11-24] MEDS ORDERED: ASPI81 PO (10:20)
--- NOTE | 2017-11-24 10:24 | HHI.DS ---
Discharge Summary Admission Date Nov 22, 2017 at 13:42 Discharge Date: Nov 24, 2017 Admitting Diagnosis NSTEMI, cephalgia, right eye blurred vision (1) Blurred vision, right eye ICD Code: H53.8 - Other visual disturbances Status: Acute (2) NSTEMI (non-ST elevated myocardial infarction) ICD Code: I21.4 - Non-ST elevation (NSTEMI) myocardial infarction Status: Acute (3) Cephalgia ICD Code: R51 - Headache Status: Acute Procedures Cardiac catheterization. Please see report. Brief History - From Admission Mr. Nina is a 62-year-old male. He has a history of nicotine use, hypertension, and hepatitis C. She reports that he's been having blurred vision in his right eye and bilateral temporal headaches for 2 weeks. He's been told by some of his friends that he is having some slurred speech. Tenderness is present at his bilateral temporal areas. He came in today specifically for chest pain. Chest pain is central in his chest and has a tight feeling. Preliminary workup in the ER shows positive troponins. Cardiology has been quickly consulted and patient will go down for cardiac catheter. No nausea or vomiting. Patient's presently smoking about one half pack per day. CBC/BMP: 11/23/17 0452 11/23/17 0452 Significant Findings Laboratory Tests Test 11/22/17 10:48 11/22/17 19:41 11/23/17 01:00 11/23/17 04:52 White Blood Count 15.2 TH/MM3 (4.0-11.0) 14.7 TH/MM3 (4.0-11.0) Neutrophils (%) (Auto) 84.2 % (16.0-70.0) 72.3 % (16.0-70.0) Neutrophils # (Auto) 12.8 TH/MM3 (1.8-7.7) 10.7 TH/MM3 (1.8-7.7) Random Glucose 135 MG/DL (74-106) Aspartate Amino Transf (AST/SGOT) 64 U/L (15-37) 67 U/L (15-37) Total Creatine Kinase 444 U/L (39-308) 495 U/L (39-308) 431 U/L (39-308) 392 U/L (39-308) Creatine Kinase MB 52.2 NG/ML (0.5-3.6) 55.7 NG/ML (0.5-3.6) 46.4 NG/ML (0.5-3.6) 40.5 NG/ML (0.5-3.6) Creatine Kinase MB % 11.8 % (0.0-4.0) 11.3 % (0.0-4.0) 10.8 % (0.0-4.0) 10.3 % (0.0-4.0) Troponin I 8.63 NG/ML (0.02-0.05) 31.20 NG/ML (0.02-0.05) 30.60 NG/ML (0.02-0.05) Red Blood Count 4.09 MIL/MM3 (4.50-5.90) 3.76 MIL/MM3 (4.50-5.90) Hemoglobin 12.0 GM/DL (13.0-17.0) 11.3 GM/DL (13.0-17.0) Hematocrit 35.7 % (39.0-51.0) 32.7 % (39.0-51.0) Monocytes # (Auto) 1.1 TH/MM3 (0-0.9) Monocytes (%) (Auto) 8.2 % (0.0-8.0) Total Protein 6.2 GM/DL (6.4-8.2) Albumin 3.1 GM/DL (3.4-5.0) Estimat Glomerular Filtration Rate 85 ML/MIN (>89) HDL Cholesterol 37.6 MG/DL (40.0-60.0) Test 11/23/17 11:55 C-Reactive Protein 0.91 MG/DL (0.00-0.30) Imaging Last Impressions Neck Magnetic Resonance Angiography 11/23/17 105 Signed Impressions: Service Date/Time: Thursday, November 23, 2017 14:21 - CONCLUSION: Normal examination. Ulysses Lizarraga MD Head Magnetic Resonance Angiography 11/23/17 1050 Signed Impressions: Service Date/Time: Thursday, November 23, 2017 14:21 - CONCLUSION: Negative MRA of the brain Jose Reyes MD FACR Brain MRI 11/23/17 0000 Signed Impressions: Service Date/Time: Thursday, November 23, 2017 09:37 - CONCLUSION: 1. No acute intracranial abnormality is identified. There are no findings to indicate recent ischemia. 2. Chronic changes include mild generalized atrophy and mild periventricular white matter change characteristic of chronic microvascular ischemia. Ulysses Westfall MD Head CT 11/22/171126 Signed Impressions: Service Date/Time: Wednesday, November 22, 2017 12:14 - CONCLUSION: 1. Unremarkable exam. 2. No evidence of acute infarct, hemorrhage, mass or edema. Roman Zimmer MD Chest X-Ray 11/22/171126 Signed Impressions: Service Date/Time: Wednesday, November 22, 2017 11:46 - CONCLUSION: No acute disease. Roman Zimmer MD Hospital Course 62-year-old male admitted secondary to chest pain with positive troponins //Acute myocardial infarction Patient is taken to heart catheter while I am seeing him Cardiology following Monitor on telemetry =Cath with 100% RCA, stented with BMS. Continue Brilinta, baby ASA, atorvastatin , beta daisy. //Bilateral temporal pain //Headache //Blurred vision at right //Slurred speech Evaluation for CVA in process MRI pending ESR is within normal limits = MRI still pending this morning. Neurology consult ordered. MRI has returned with no acute findings. = Appreciate neurology's assistance. Ophthalmology consult obtained. Follow- up ophthalmology consult = Pending ophthalmology clearance. //Hypertension Continue baseline treatment Follow blood pressures Adjust treatments as needed DVT Prophylaxis Lovenox Discharge Planning Cleared by cardiology = Discharge if cleared by ophthalmology and echo is negative. =Follow-up with cardiology, ophthalmology as outpatient. Pt Condition on Discharge: Good Discharge Disposition: Discharge Home Discharge Time: > 30 minutes Discharge Instructions DIET: Follow Instructions for: Heart Healthy Diet Activities you can perform: Regular-No Restrictions Follow up Referrals: Cardiology - 2 Weeks with Saritha Rosario MD Ophthalmology - 1 Week PCP Follow-up - 1 Week with [facility] New Medications: Aspirin (Tgt Aspirin) 81 Mg Chw 81 MG PO DAILY for Blood Clot Prevention for 30 Days, #30 EA Atorvastatin (Lipitor) 10 Mg Tab 40 MG PO HS for heart for 30 Days, #30 TAB Carvedilol (Coreg) 3.125 Mg Tab 3.125 MG PO BID for heart for 30 Days, #60 TAB Escitalopram (Escitalopram) 10 Mg Tab 10 MG PO DAILY for heart, #30 TAB Ticagrelor (Brilinta) 90 Mg Tab 90 MG PO BID for Blood Clot Prevention for 30 Days, #60 TAB Continued Medications: Acetaminophen (Tylenol Extra Strength) 500 Mg Tablet 2 TAB PO Q6HR PRN for PAIN SCALE 6 TO 10 Discontinued Medications: Atenolol (Atenolol) 50 Mg Tab 50 MG PO DAILY for Blood Pressure Management, #30 TAB 0 Refills Levofloxacin (Levofloxacin) 500 Mg Tablet 500 MG PO DAILY for Infection, TAB 0 Refills Prednisone (Prednisone) 20 Mg Tab 20 MG PO DAILY, TAB 0 Refills David Larson MD Nov 24, 2017 10:24
--- NOTE | 2017-11-24 10:35 | PD.CONS ---
History of Present Illness Service Ophthalmology Consult Requested By Reason for Consult blurry vision OD Primary Care Physician [facility] Diagnoses: History of Present Illness 62 yo M presenting to ED with blurry vision OD and bilateral temporal headaches x 2 weeks. He was also complaining of mild chest pain. MRI head, MRA head/neck negative. Diagnosed with TX now s/p cath and stent. ROS neg for GCA. ESR 10, CRP 0.91. Pt states the vision in his right eye has gradually been improving - it is almost normal at nighttime but still blurred during the day. No pain in eye, no photophobia, no diplopia. No significant ocular history. Past Family Social History Allergies: Coded Allergies: No Known Allergies (Unverified , 11/22/17) Physical Exam Vital Signs Vital Signs Date Time Temp Pulse Resp B/P (MAP) Pulse Ox O2 Delivery O2 Flow Rate FiO2 11/24/17 06:00 62 11/24/17 05:00 63 11/24/17 04:45 61 11/24/17 04:00 98.6 63 18 91/64 (73) 97 11/24/17 03:00 63 11/24/17 01:00 61 11/24/17 00:18 98.6 61 18 111/64 (80) 97 11/24/17 00:00 61 11/23/17 21:00 61 11/23/17 20:00 97.7 61 18 120/63 (82) 97 11/23/17 20:00 61 11/23/17 18:00 55 11/23/17 17:38 58 11/23/17 17:18 16 11/23/17 16:01 56 11/23/17 15:31 58 11/23/17 15:31 98.2 89 18 129/69 (89) 97 11/23/17 14:00 63 11/23/17 13:11 61 11/23/17 12:28 66 11/23/17 12:25 73 11/23/17 12:25 97.8 61 18 104/57 (73) 96 Physical Exam Va cc at near OD 20/70, OS 20/30 EOM full OU, no diplopia CVF full OU Pupils 2-1 no APD OU IOP normal to palpation OU Anterior exam OD - normal eyelid, C/S W&Q, K clear, AC deep, pupil round, lens clear OS - normal eyelid, C/S W&Q, K clear, AC deep, pupil round, lens clear Dilated exam OD - ON s/p/f, ves normal, vit clear, retina flat OS - ON s/p/f, ves normal, vit clear, retina flat Laboratory Laboratory Tests Test 11/23/17 11:55 C-Reactive Protein 0.91 Vitamin B12 Level 656 Free Thyroxine 0.77 Thyroid Stimulating Hormone 3rd Gen 1.770 Result Diagram: 11/23/1745111/23/17451 Assessment and Plan Problem List: (1) Blurry vision, right eye ICD Codes: H53.8 - Other visual disturbances Plan: Normal dilated exam. Advised pt to follow up as an outpatient for further testing. Sonia Hastings MD Nov 24, 2017 10:35
--- NOTE | 2017-11-24 13:04 | PD.CARD.PN ---
Subjective Subjective Remarks No CP or SOB, still c/o mild CANALES Objective Medications Current Medications Medications (Trade) Dose Ordered Sig/Bianca Route Start Time Stop Time Status Last Admin (Morphine Inj) 2 mg Q3H PRN IV PUSH 11/22/17 13:45 11/24/17 01:01 (Morphine Inj) 4 mg Q3H PRN IV PUSH 11/22/17 13:45 11/23/17 21:13 (Narcan Inj) 0.4 mg UNSCH PRN IV PUSH 11/22/17 13:45 (Milk Of Magnesia Liq) 30 ml Q12H PRN PO 11/22/17 13:45 (NS Flush) 2 ml BID IV FLUSH 11/22/17 21:00 11/24/17 08:51 (NS Flush) 2 ml UNSCH PRN IV FLUSH 11/22/17 13:45 (Nitrostat Sl) 0.4 mg Q5M PRN SL 11/22/17 13:45 (Aspirin Chew) 81 mg DAILY PO 11/23/17 09:00 11/24/17 08:51 (Brilinta) 90 mg BID PO 11/23/17 09:00 11/24/17 08:51 (Coreg) 3.125 mg BID PO 11/22/17 21:00 11/24/17 08:51 (Lipitor) 40 mg HS PO 11/22/17 21:00 11/23/17 21:12 (Lexapro) 10 mg DAILY PO 11/23/17 11:15 11/24/17 08:51 Vital Signs / I&O Vital Signs Date Time Temp Pulse Resp B/P (MAP) Pulse Ox O2 Delivery O2 Flow Rate FiO2 11/24/17 12:20 98.5 55 18 122/64 (83) 97 11/24/17 07:00 97.9 68 18 97/62 (74) 94 11/24/17 06:00 62 11/24/17 05:00 63 11/24/17 04:45 61 11/24/17 04:00 98.6 63 18 91/64 (73) 97 11/24/17 03:00 63 11/24/17 01:00 61 11/24/17 00:18 98.6 61 18 111/64 (80) 97 11/24/17 00:00 61 11/23/17 21:00 61 11/23/17 20:00 97.7 61 18 120/63 (82) 97 11/23/17 20:00 61 11/23/17 18:00 55 11/23/17 17:38 58 11/23/17 17:18 16 11/23/17 16:01 56 11/23/17 15:31 58 11/23/17 15:31 98.2 89 18 129/69 (89) 97 11/23/17 14:00 63 11/23/17 13:11 61 I/O 11/23/17 11/23/17 11/23/17 11/24/17 11/24/17 11/24/17 07:00 15:00 23:00 07:00 15:00 23:00 Intake Total 240 ml 480 ml 240 ml Output Total 325 ml 900 ml Balance -85 ml -420 ml 240 ml Intake Oral 240 ml 480 ml 240 ml Output Urine Total 325 ml 900 ml # Voids 3 # Bowel Movements 0 Physical Exam GENERAL: In NAD SKIN: Warm and dry. HEAD: Normocephalic. EYES: No scleral icterus. No injection or drainage. NECK: Supple, trachea midline. No JVD or lymphadenopathy. CARDIOVASCULAR: Regular rate and rhythm without murmurs, gallops, or rubs. RESPIRATORY: Breath sounds equal bilaterally. No accessory muscle use. GASTROINTESTINAL: Abdomen soft, non-tender, nondistended. MUSCULOSKELETAL: No cyanosis, or edema. Groin stable Assessment and Plan Problem List: (1) NSTEMI (non-ST elevated myocardial infarction) ICD Codes: I21.4 - Non-ST elevation (NSTEMI) myocardial infarction Status: Acute (2) CAD (coronary artery disease) ICD Codes: I25.10 - Atherosclerotic heart disease of [place] coronary artery without angina pectoris (3) Stented coronary artery ICD Codes: Z95.5 - Presence of coronary angioplasty implant and graft (4) HTN (hypertension) ICD Codes: I10 - Essential (primary) hypertension (5) Smoking ICD Codes: F17.200 - Nicotine dependence, unspecified, uncomplicated (6) Cephalgia ICD Codes: R51 - Headache Status: Acute (7) Hepatitis C ICD Codes: B19.20 - Unspecified viral hepatitis C without hepatic coma Assessment and Plan No new cardiac issues, remains stable from cardiac standpoint. Cath with 100% RCA, stented with BMS. Continue Brilinta, baby ASA, atorvastatin, beta daisy. Increase activity. Eval for CANALES/neck pain in progress. OK to discharge from cardiac standpoint. [facility]. Saritha Rosario MD Nov 24, 2017 13:04
--- NOTE | 2017-11-24 17:45 | ECHRPT ---
Indication: CVA/TIA CONCLUSIONS The left ventricular systolic function is normal with an estimated ejection fraction in the range of 55-60%. Normal left ventricular size. Wall thickness is normal. No regional wall motion abnormalities are present. Mild thickening of the mitral valve leaflets. Diffuse calcification of the aortic valve. Mild aortic valve stenosis. Aortic valve area is 1.5 cm. Aortic valve mean gradient is 9.5 mmHg. BP: 113 / 70 HR: 81 Rhythm: MEASUREMENTS (Male / Female) Normal Values Technical Quality: 2D ECHO LV Diastolic Diameter PLAX 4.6 cm 4.2 - 5.9 / 3.9 - 5.3 cm LV Systolic Diameter PLAX 3.5 cm IVS Diastolic Thickness 1.0 cm 0.6 - 1.0 / 0.6 - 0.9 cm LVPW Diastolic Thickness 1.0 cm 0.6 - 1.0 / 0.6 - 0.9 cm LV Relative Wall Thickness 0.4 LVOT Diameter 1.9 cm LA Systolic Diameter LX 3.4 cm 3.0 - 4.0 / 2.7 - 3.8 cm LV Ejection Fraction MOD 4C 57.3 % LV Cardiac Index MOD 4C 2412.3 cm/minm LV Ejection Fraction 4C AL 58.0 % LV Cardiac Index 4C AL 2481.6 cm/minm M-MODE Aortic Root Diameter MM 3.0 cm AV Cusp Separation MM 1.8 cm DOPPLER AV Peak Velocity 218.5 cm/s AV Peak Gradient 19.1 mmHg AV Mean Gradient 9.5 mmHg AV Velocity Time Integral 43.9 cm LVOT Peak Velocity 113.0 cm/s LVOT Peak Gradient 5.1 mmHg LVOT Velocity Time Integral 23.2 cm LVOT Cardiac Index 3111.3 cm/minm AV Area Cont Eq vti 1.5 cm AV Area Cont Eq pk 1.5 cm MV Area PHT 3.8 cm Mitral E Point Velocity 94.3 cm/s Mitral A Point Velocity 89.3 cm/s Mitral E to A Ratio 1.1 LV E' Lateral Velocity 12.0 cm/s Mitral E to LV E' Lateral Ratio 7.9 LV E' Septal Velocity 7.2 cm/s Mitral E to LV E' Septal Ratio 13.1 PV Peak Velocity 100.0 cm/s PV Peak Gradient 4.0 mmHg FINDINGS LEFT VENTRICLE The left ventricular systolic function is normal with an estimated ejection fraction in the range of 55-60%. Normal left ventricular size. Wall thickness is normal. No regional wall motion abnormalities are present. RIGHT VENTRICLE Normal right ventricular size and systolic function. LEFT ATRIUM The left atrial size is normal. RIGHT ATRIUM The right atrial size is normal. ATRIAL SEPTUM Normal atrial septal thickness without atrial level shunting by limited color doppler interrogation. AORTA The aortic root and proximal ascending aorta are normal in size on limited imaging. MITRAL VALVE Mild thickening of the mitral valve leaflets. AORTIC VALVE Trileaflet aortic valve. Diffuse calcification of the aortic valve. Mild aortic valve stenosis. Aortic valve area is 1.5 cm. Aortic valve mean gradient is 9.5 mmHg. TRICUSPID VALVE Structurally normal tricuspid valve. No tricuspid valve stenosis or regurgitation. PULMONARY VALVE The pulmonary valve is not well visualized. VESSELS The inferior vena cava is normal in size. PERICARDIUM No pericardial effusion. Eloy Ji MD, FACC, [facility] (Electronically Signed) Final Date:24 November 2017 17:44
[2017-11-25 12:39] LABS: ANA SCREEN NEG (NEG)
--- NOTE | 2017-11-25 18:16 | HM ---
Date Performed: 11/23/2017 Time Performed: 18:28:00 HOOKUP DATE: 11/23/17 06:28:00 PM Wed ANALYSIS START TIME: 11/23/2017 6:33:00 PM ANALYSIS END TIME: 11/24/2017 6:37:00 PM PATIENT AGE: 62 PATIENT HEIGHT PATIENT WEIGHT DRUG LIST PATIENT DIAGNOSIS: NSTEMI CEPHALGIA RIGHT EYE BLURRED VISION TEST NARRATIVE: The patient's average heart rate was 63 BPM. No episodes of tachycardia wer e noted. No episodes of bradycardia were noted. No pauses exceeding 2.0 seconds were noted. 12 ventricular ectopics, which represented < 1% of the total beat count, were noted. The highest [place] tricular ectopic frequency occurred from 02:00 AM to 03:00 AM Мария. During this time 3 VE(s) occurred . Ventricular ectopics were observed as 10 isolated beat(s) and as 1 couplet(s). No runs were noted . 26 supraventricular ectopics, which represented < 1% of the total beat count, were noted. The highest supraventricular ectopic frequency occurred from 02:00 PM to 03:00 PM Мария. During this time 4 SVE(s) occurred. No episodes of ST depression (defined as -1.0 mm or more) were noted in channe l 1. No episodes of ST depression (defined as -1.0 mm or more) were noted in channel 2. No episodes of ST depression (defined as -1.0 mm or more) were noted in channel 3. TEST INTERPRETATION: The predominant rhythm was sinus. The patient had occasional PACs and PVCs. 1 couplet was noted. No ventricular runs, pauses, or atrial fibrillation was appreciated. No diary e ntries of any cardiac complaints were provided. Conclusions: Essentially a normal holter monitor. Signed by : Nena Angel
== END 2017-11-24 19:49 | disposition home or self-care (01) | DRG 247 ==
LOC: NEPE 10:36 → NEDA 13:42 → HCIS 16:40
PROVIDERS: ADMIT Internal Medicine; ATTEND Internal Medicine
PROC: 4A023N8 Measurement of Cardiac Sampling and Pressure, Bilateral, Percutaneous Approach (ICD-10-PCS; 2017-11-22)
PROC: B2111ZZ Fluoroscopy of Multiple Coronary Arteries using Low Osmolar Contrast (ICD-10-PCS; 2017-11-22)
PROC: B2151ZZ Fluoroscopy of Left Heart using Low Osmolar Contrast (ICD-10-PCS; 2017-11-22)
PROC: 027035Z Dilation of Coronary Artery, One Artery with Two Drug-eluting Intraluminal Devices, Percutaneous Approach (ICD-10-PCS; principal; 2017-11-22 13:30)
DX: I21.4 Non-ST elevation (NSTEMI) myocardial infarction (principal); I25.119 Atherosclerotic heart disease of native coronary artery with unspecified angina pectoris; I10 Essential (primary) hypertension; H53.8 Other visual disturbances; G47.9 Sleep disorder, unspecified; B19.20 Unspecified viral hepatitis C without hepatic coma; F17.210 Nicotine dependence, cigarettes, uncomplicated; R47.81 Slurred speech; F43.10 Post-traumatic stress disorder, unspecified; I25.5 Ischemic cardiomyopathy; J44.9 Chronic obstructive pulmonary disease, unspecified
CPT/HCPCS: 70450; 70544; 70548; 70551; 71045; 80053; 80061; 82550; 82552; 82607; 84425; 84439; 84443; 84484; 85002; 85025; 85610; 85652; 85730; 86038; 86140; 86592; 92928; 93005; 93225; 93226; 93306; 93458; 94664; 96374; 96375; 99152; 99153; A9579; C1725; C1760; C1769; C1876; C1887; C1893; G0269; J1644; J2250; J2270; J2405; J3010; J7030; Q9967